=== PATIENT | female | born 1955 | race Caucasian/White ===

== ENCOUNTER 2022-01-05 09:23 | Inpatient (IN) | payer OTHER, MEDICARE ==
[2022-01-05] MEDS ORDERED: FLU VACC QS2022-23(65YR UP)/PF 240 MCG/0.7 ML SYRINGE IM ONE (11:45)
[2022-01-05] MEDS ORDERED: DOBUTamine 250 MG/20 ML VIAL ONE (12:23)
[2022-01-05] MEDS ORDERED: Nitroglycerin 0.4 MG TAB (25 Tab Bottle) SL PRN (13:30)
[2022-01-05] MEDS ORDERED: Albuterol Sulfate 2.5 mg/0.5 ml Neb NEB PRN (13:43)
[2022-01-05] MEDS: Morphine 4 MG/ML VIAL SLOW IVP PRN (14:11)
[2022-01-05] MEDS ORDERED: Magnesium 2 GM/50 ML(in water) 2 GM in Premix Bag 1 BAG IVPB SCH (14:15)
[2022-01-05] MEDS ORDERED: Iopamidol 370 76% 100 ML VIAL ONE (14:19)
[2022-01-05] MEDS: Sodium Chloride 0.9% 1,000 ML IV SCH (15:04)
[2022-01-05] MEDS ORDERED: HYDROcodone/Acetaminophen 7.5/325 mg Tablet PO SCH ×2 (15:45→16:00)
[2022-01-05] MEDS ORDERED: [UNRECOGNIZED DRUG - OTHER] MC SCH (17:00)
[2022-01-05 17:19] LABS: RBC Count-Automated (BF) 1841 /cu.mm; WBC/Nucleated-Auto (BF) 2036 /cu.mm
[2022-01-05] MEDS: Methocarbamol 500 MG TAB PO SCH ×2 (17:19→20:17)
[2022-01-05] MEDS: Gabapentin 400 MG CAP PO SCH ×2 (17:20→20:17)
[2022-01-05 18:02] LABS: Pleural Fluid, Protein 3.1 g/dL
[2022-01-05 18:20] LABS: BF Color Yellow; Body Fluid Source Pleural Fluid; Clarity Hazy (Clear); Tube # EDTA
[2022-01-05 18:25] LABS: BF Segmented Neutrophils 22 %; Cell Count Non Hematic 53 %; Lymphocytes 25 %
[2022-01-05] MEDS: Mometasone/Formoterol 200/5 60 PUFF INH SCH (18:56)
[2022-01-05] MEDS: Trospium 20 MG TAB PO SCH (20:18)
[2022-01-05] MEDS: Rosuvastatin 20 MG TAB PO SCH (20:18)
[2022-01-05] MEDS: guaiFENesin ER 600 MG TAB PO SCH (20:18)
[2022-01-05] MEDS: Latanoprost 0.005% Ophth Soln 2.5 ml Bottle EA EYE SCH (20:18)
[2022-01-05] MEDS: Zolpidem Tartrate 5 MG TAB PO SCH (20:18)
[2022-01-05] MEDS ORDERED: Electrolyte Replacement Protocol 1 EACH FS SCH (21:30)
[2022-01-05 22:00] LABS: Anion Gap 10 mmol/L (10-20); BUN (Urea Nitrogen) 10 mg/dL (9.8-20.1); Calc. Creatinine Clearance 75 mL/min (70-130); Calcium 7.8 mg/dL (7.8-10.44); Carbon Dioxide 26 mmol/L (23-31); Chloride 104 mmol/L (98-107); Estimated GFR 99; Glucose 142 mg/dL (80-115); Magnesium 1.9 mg/dL (1.6-2.6); Potassium 3.4 mmol/L (3.5-5.1); Sodium 137 mmol/L (136-145)
[2022-01-06] MEDS ORDERED: Magnesium 2 GM/50 ML(in water) 2 GM in Premix Bag 1 BAG IVPB SCH (00:15)
[2022-01-06] MEDS: Potassium Chloride 20 MEQ in Premix Bag 1 BAG IVPB SCH ×2 (01:41→02:40)
[2022-01-06] MEDS: Morphine 4 MG/ML VIAL SLOW IVP PRN ×3 (02:01→20:34)
[2022-01-06] MEDS ORDERED: Potassium Chloride 20 MEQ TAB PO SCH (02:30)
[2022-01-06] MEDS: Sodium Chloride 0.9% 1,000 ML IV SCH ×2 (04:34→16:35)
[2022-01-06] MEDS ORDERED: Communication Order-Pharmacy FS SCH (07:15)
[2022-01-06] MEDS: Mometasone/Formoterol 200/5 60 PUFF INH SCH ×2 (07:53→19:02)
[2022-01-06 08:26] LABS: #Eosinphils 0.1 thou/uL (0.0-0.7); #Lymphocytes 1.8 thou/uL (1.20-3.40); #Monocytes 0.9 thou/uL (0.11-0.59); #Neutrophils 6.5 thou/uL (1.40-6.50); %Basophils 0.2 % (0.0-1.0); %Eosinophils 1.1 % (0.0-10.0); %Lymphocytes 19.2 % (21.0-51.0); %Monocytes 9.2 % (0.0-10.0); %Neutrophils 70.3 % (42.0-75.0); Hemoglobin 13.7 g/dL (12.0-16.0); Mean Corpuscular HGB CONC 34.6 g/dL (32.0-36.0); Mean Corpuscular Hemoglobin 36.4 pg (27.0-31.0); Mean Platelet Volume 7.3 fL (7.4-10.4); Platelet Count 284 10x3/uL (130-400); RBC Distribution Width 12.3 % (11.5-14.5); Red Blood Cell (RBC) Count 3.75 mill/uL (4.20-5.40); White Blood Cell (WBC) Count 9.2 10x3/uL (4.8-10.8)
[2022-01-06 08:35] LABS: ALT (SGPT) 24 U/L (8-55); AST (SGOT) 45 U/L (5-34); Alkaline Phosphatase 242 U/L (40-110); Anion Gap 11 mmol/L (10-20); BUN (Urea Nitrogen) 6 mg/dL (9.8-20.1); Bilirubin, Total 0.4 mg/dL (0.2-1.2); Calc. Creatinine Clearance 80 mL/min (70-130); Calcium 7.9 mg/dL (7.8-10.44); Carbon Dioxide 23 mmol/L (23-31); Chloride 106 mmol/L (98-107); Estimated GFR 100; Globulin 2.6 g/dL (2.4-3.5); Glucose 119 mg/dL (80-115); Potassium 3.7 mmol/L (3.5-5.1); Protein, Total 5.6 g/dL (5.8-8.1); Sodium 136 mmol/L (136-145)
[2022-01-06] MEDS ORDERED: Enoxaparin Sodium 40 MG/0.4 ML SYRINGE SC SCH (09:00)
[2022-01-06] MEDS: Trospium 20 MG TAB PO SCH ×2 (09:52→20:33)
[2022-01-06] MEDS: clonazePAM 1 MG TAB PO SCH (09:52)
[2022-01-06] MEDS: Loratadine 10 MG TAB PO SCH (09:52)
[2022-01-06] MEDS: Gabapentin 400 MG CAP PO SCH ×4 (09:52→20:33)
[2022-01-06] MEDS: Lisinopril 20 MG TAB PO SCH (09:53)
[2022-01-06] MEDS: guaiFENesin ER 600 MG TAB PO SCH ×2 (09:53→20:33)
[2022-01-06] MEDS: DULoxetine 60 MG CAP PO SCH (09:53)
[2022-01-06] MEDS: Hydroxychloroquine Sulfate 200 MG TAB PO SCH (09:53)
[2022-01-06] MEDS: Estradiol 1 MG TAB PO SCH (09:53)
[2022-01-06] MEDS: Methocarbamol 500 MG TAB PO SCH ×4 (09:54→20:33)
[2022-01-06] MEDS ORDERED: HYDROmorphone 0.5 MG/0.5 ML SYRINGE SLOW IVP SCH (12:00)
[2022-01-06] MEDS: Mometasone Furoate 30 PUFF 220 MCG INH SCH (19:02)
[2022-01-06] MEDS: Latanoprost 0.005% Ophth Soln 2.5 ml Bottle EA EYE SCH (20:31)
[2022-01-06] MEDS: Zolpidem Tartrate 5 MG TAB PO SCH (20:33)
[2022-01-06] MEDS: Rosuvastatin 20 MG TAB PO SCH (20:33)
[2022-01-07] MEDS: Morphine 4 MG/ML VIAL SLOW IVP PRN ×2 (00:18→06:15)
[2022-01-07] MEDS: Acetaminophen 325 MG TAB PO PRN (03:34)
[2022-01-07 05:20] LABS: #Eosinphils 0.1 thou/uL (0.0-0.7); #Lymphocytes 1.3 thou/uL (1.20-3.40); #Monocytes 0.8 thou/uL (0.11-0.59); #Neutrophils 7.2 thou/uL (1.40-6.50); %Basophils 0.4 % (0.0-1.0); %Lymphocytes 13.7 % (21.0-51.0); %Monocytes 8.6 % (0.0-10.0); %Neutrophils 76.3 % (42.0-75.0); Hemoglobin 12.6 g/dL (12.0-16.0); Mean Corpuscular HGB CONC 33.7 g/dL (32.0-36.0); Mean Corpuscular Hemoglobin 35.7 pg (27.0-31.0); Mean Platelet Volume 7.7 fL (7.4-10.4); Platelet Count 236 10x3/uL (130-400); RBC Distribution Width 12.4 % (11.5-14.5); Red Blood Cell (RBC) Count 3.52 mill/uL (4.20-5.40); White Blood Cell (WBC) Count 9.4 10x3/uL (4.8-10.8)
[2022-01-07 05:35] LABS: ALT (SGPT) 34 U/L (8-55); AST (SGOT) 71 U/L (5-34); Albumin 2.9 g/dL (3.4-4.8); Alkaline Phosphatase 248 U/L (40-110); Anion Gap 7 mmol/L (10-20); BUN (Urea Nitrogen) 4 mg/dL (9.8-20.1); Bilirubin, Total 0.4 mg/dL (0.2-1.2); Calc. Creatinine Clearance 75 mL/min (70-130); Calcium 7.8 mg/dL (7.8-10.44); Carbon Dioxide 27 mmol/L (23-31); Chloride 106 mmol/L (98-107); Estimated GFR 99; Globulin 2.3 g/dL (2.4-3.5); Glucose 126 mg/dL (80-115); Potassium 3.8 mmol/L (3.5-5.1); Protein, Total 5.2 g/dL (5.8-8.1); Sodium 136 mmol/L (136-145)
[2022-01-07] MEDS: Sodium Chloride 0.9% 1,000 ML IV SCH ×2 (05:58→20:44)
[2022-01-07] MEDS ORDERED: Heparin 10,000 UNITS/ 10 ML VIAL ONE (06:45)
[2022-01-07] MEDS ORDERED: Lidocaine 1% (PF) 30 ML VIAL ONE (06:46)
[2022-01-07] MEDS ORDERED: Midazolam HCl 2 mg/2 ml Vial ONE (07:18)
[2022-01-07] MEDS ORDERED: FENTANYL 50 MCG/ML 1 ML VIAL ONE (07:18)
[2022-01-07] MEDS: Mometasone/Formoterol 200/5 60 PUFF INH SCH ×2 (07:47→18:49)
[2022-01-07] MEDS ORDERED: Morphine 4 MG/ML VIAL ONE ×2 (07:49→08:16)
[2022-01-07] MEDS ORDERED: Nitroglycerin 0.4 MG TAB (25 Tab Bottle) SL PRN (08:57)
[2022-01-07] MEDS ORDERED: Sodium Chloride 0.9% 200 ML IV PRN (08:57)
[2022-01-07] MEDS: guaiFENesin ER 600 MG TAB PO SCH ×2 (10:06→20:37)
[2022-01-07] MEDS: Hydroxychloroquine Sulfate 200 MG TAB PO SCH (10:06)
[2022-01-07] MEDS: Folic Acid 1 MG TAB PO SCH (10:06)
[2022-01-07] MEDS: clonazePAM 1 MG TAB PO SCH (10:06)
[2022-01-07] MEDS: Gabapentin 400 MG CAP PO SCH ×4 (10:06→20:37)
[2022-01-07] MEDS: Trospium 20 MG TAB PO SCH ×2 (10:07→20:37)
[2022-01-07] MEDS: Methocarbamol 500 MG TAB PO SCH ×4 (10:07→20:42)
[2022-01-07] MEDS: Thiamine 100 MG TAB PO SCH (10:08)
[2022-01-07] MEDS: DULoxetine 60 MG CAP PO SCH (10:08)
[2022-01-07] MEDS: Multivit, Therapeutic 1 TAB PO SCH (10:08)
[2022-01-07] MEDS: Lisinopril 20 MG TAB PO SCH (10:08)
[2022-01-07] MEDS: Estradiol 1 MG TAB PO SCH (10:09)
[2022-01-07] MEDS: Loratadine 10 MG TAB PO SCH (10:09)
[2022-01-07] MEDS ORDERED: HYDROmorphone 0.5 MG/0.5 ML SYRINGE SLOW IVP SCH (10:30)
[2022-01-07] MEDS ORDERED: Iopamidol 370 76% 100 ML VIAL ONE (11:00)
[2022-01-07] MEDS: Mometasone Furoate 30 PUFF 220 MCG INH SCH (18:48)
[2022-01-07] MEDS: Acetaminophen/Codeine 30-300mg Tablet PO PRN (19:11)
[2022-01-07] MEDS: Rosuvastatin 20 MG TAB PO SCH (20:36)
[2022-01-07] MEDS: Latanoprost 0.005% Ophth Soln 2.5 ml Bottle EA EYE SCH (20:37)
[2022-01-07] MEDS: Zolpidem Tartrate 5 MG TAB PO SCH (20:45)
[2022-01-08] MEDS: Acetaminophen/Codeine 30-300mg Tablet PO PRN ×2 (03:17→23:34)
[2022-01-08 04:37] LABS: #Eosinphils 0.1 thou/uL (0.0-0.7); #Lymphocytes 1.4 thou/uL (1.20-3.40); #Monocytes 0.8 thou/uL (0.11-0.59); #Neutrophils 8.7 thou/uL (1.40-6.50); %Basophils 0.4 % (0.0-1.0); %Eosinophils 0.9 % (0.0-10.0); %Lymphocytes 12.8 % (21.0-51.0); %Monocytes 7.3 % (0.0-10.0); %Neutrophils 78.6 % (42.0-75.0); Hemoglobin 12.7 g/dL (12.0-16.0); Mean Corpuscular HGB CONC 32.5 g/dL (32.0-36.0); Mean Corpuscular Hemoglobin 34.1 pg (27.0-31.0); Mean Platelet Volume 8.1 fL (7.4-10.4); Platelet Count 269 10x3/uL (130-400); RBC Distribution Width 12.6 % (11.5-14.5); Red Blood Cell (RBC) Count 3.72 mill/uL (4.20-5.40); White Blood Cell (WBC) Count 11.1 10x3/uL (4.8-10.8)
[2022-01-08 05:00] LABS: ALT (SGPT) 35 U/L (8-55); AST (SGOT) 71 U/L (5-34); Albumin 2.8 g/dL (3.4-4.8); Alkaline Phosphatase 293 U/L (40-110); Anion Gap 10 mmol/L (10-20); BUN (Urea Nitrogen) Less than 4 mg/dL (9.8-20.1); Bilirubin, Total 0.5 mg/dL (0.2-1.2); Calc. Creatinine Clearance 85 mL/min (70-130); Calcium 8.2 mg/dL (7.8-10.44); Carbon Dioxide 28 mmol/L (23-31); Chloride 102 mmol/L (98-107); Estimated GFR 102; Globulin 2.6 g/dL (2.4-3.5); Glucose 131 mg/dL (80-115); Magnesium 1.6 mg/dL (1.6-2.6); Potassium 3.7 mmol/L (3.5-5.1); Protein, Total 5.4 g/dL (5.8-8.1); Sodium 136 mmol/L (136-145)
[2022-01-08] MEDS: Mometasone/Formoterol 200/5 60 PUFF INH SCH ×2 (07:25→18:52)
[2022-01-08] MEDS ORDERED: Magnesium 2 GM/50 ML(in water) 2 GM in Premix Bag 1 BAG IVPB SCH (08:00)
[2022-01-08] MEDS: Methocarbamol 500 MG TAB PO SCH ×4 (09:20→20:04)
[2022-01-08] MEDS: Loratadine 10 MG TAB PO SCH (09:21)
[2022-01-08] MEDS: clonazePAM 1 MG TAB PO SCH (09:21)
[2022-01-08] MEDS: Estradiol 1 MG TAB PO SCH (09:21)
[2022-01-08] MEDS: Thiamine 100 MG TAB PO SCH (09:21)
[2022-01-08] MEDS: DULoxetine 60 MG CAP PO SCH (09:21)
[2022-01-08] MEDS: Folic Acid 1 MG TAB PO SCH (09:21)
[2022-01-08] MEDS: Multivit, Therapeutic 1 TAB PO SCH (09:22)
[2022-01-08] MEDS: Morphine 4 MG/ML VIAL SLOW IVP PRN ×2 (09:22→17:05)
[2022-01-08] MEDS: Gabapentin 400 MG CAP PO SCH ×4 (09:22→20:07)
[2022-01-08] MEDS: Trospium 20 MG TAB PO SCH ×2 (09:22→20:08)
[2022-01-08] MEDS: Hydroxychloroquine Sulfate 200 MG TAB PO SCH (09:22)
[2022-01-08] MEDS: guaiFENesin ER 600 MG TAB PO SCH ×2 (09:22→20:04)
[2022-01-08] MEDS: Sodium Chloride 0.9% 1,000 ML IV SCH ×2 (09:35→17:02)
[2022-01-08] MEDS ORDERED: Iopamidol-370 76% 500 ML 1 ML ONE (10:42)
[2022-01-08] MEDS: Acetaminophen 325 MG TAB PO PRN (10:45)
[2022-01-08] MEDS ORDERED: Magnevist 469MG/ML 20 ML VIAL ONE (11:00)
[2022-01-08] MEDS ORDERED: HYDROmorphone 2 MG TAB PO SCH (12:30)
[2022-01-08] MEDS ORDERED: HYDROmorphone 2 MG TAB PO PRN (15:00)
[2022-01-08] MEDS ORDERED: Morphine ER 15 MG TAB PO SCH (15:45)
[2022-01-08] MEDS: Mometasone Furoate 30 PUFF 220 MCG INH SCH (18:53)
[2022-01-08] MEDS: Zolpidem Tartrate 5 MG TAB PO SCH (20:04)
[2022-01-08] MEDS: Morphine ER 15 MG TAB PO SCH (20:04)
[2022-01-08] MEDS: Rosuvastatin 20 MG TAB PO SCH (20:08)
[2022-01-08] MEDS: Latanoprost 0.005% Ophth Soln 2.5 ml Bottle EA EYE SCH (20:09)
[2022-01-09] MEDS: Acetaminophen/Codeine 30-300mg Tablet PO PRN ×2 (03:27→11:58)
[2022-01-09 04:01] LABS: #Eosinphils 0.1 thou/uL (0.0-0.7); #Lymphocytes 1.6 thou/uL (1.20-3.40); #Monocytes 1.3 thou/uL (0.11-0.59); #Neutrophils 10.7 thou/uL (1.40-6.50); %Basophils 0.2 % (0.0-1.0); %Eosinophils 0.6 % (0.0-10.0); %Lymphocytes 11.5 % (21.0-51.0); %Monocytes 9.7 % (0.0-10.0); %Neutrophils 77.9 % (42.0-75.0); Hemoglobin 12.3 g/dL (12.0-16.0); Mean Corpuscular HGB CONC 33.8 g/dL (32.0-36.0); Mean Corpuscular Hemoglobin 35.4 pg (27.0-31.0); Platelet Count 246 10x3/uL (130-400); RBC Distribution Width 12.5 % (11.5-14.5); Red Blood Cell (RBC) Count 3.48 mill/uL (4.20-5.40); White Blood Cell (WBC) Count 13.8 10x3/uL (4.8-10.8)
[2022-01-09 04:38] LABS: Anion Gap 10 mmol/L (10-20); BUN (Urea Nitrogen) 4 mg/dL (9.8-20.1); Calc. Creatinine Clearance 88 mL/min (70-130); Carbon Dioxide 28 mmol/L (23-31); Chloride 98 mmol/L (98-107); Potassium 3.3 mmol/L (3.5-5.1); Sodium 133 mmol/L (136-145)
[2022-01-09 04:39] LABS: ALT (SGPT) 35 U/L (8-55); AST (SGOT) 72 U/L (5-34); Albumin 2.8 g/dL (3.4-4.8); Alkaline Phosphatase 284 U/L (40-110); Bilirubin, Total 1.2 mg/dL (0.2-1.2); Calcium 7.9 mg/dL (7.8-10.44); Estimated GFR 103; Globulin 2.7 g/dL (2.4-3.5); Glucose 181 mg/dL (80-115); Protein, Total 5.5 g/dL (5.8-8.1)
[2022-01-09] MEDS: Sodium Chloride 0.9% 1,000 ML IV SCH (07:26)
[2022-01-09] MEDS: Mometasone/Formoterol 200/5 60 PUFF INH SCH ×2 (07:43→18:56)
[2022-01-09] MEDS ORDERED: Potassium Chloride 20 MEQ TAB PO SCH ×2 (08:00→16:00)
[2022-01-09] MEDS: Morphine ER 15 MG TAB PO SCH ×2 (08:15→21:17)
[2022-01-09] MEDS: Thiamine 100 MG TAB PO SCH (08:15)
[2022-01-09] MEDS: Trospium 20 MG TAB PO SCH ×2 (08:16→21:16)
[2022-01-09] MEDS: Multivit, Therapeutic 1 TAB PO SCH (08:16)
[2022-01-09] MEDS: Gabapentin 400 MG CAP PO SCH ×4 (08:16→21:16)
[2022-01-09] MEDS: Folic Acid 1 MG TAB PO SCH (08:17)
[2022-01-09] MEDS: clonazePAM 1 MG TAB PO SCH (08:17)
[2022-01-09] MEDS: Methocarbamol 500 MG TAB PO SCH ×4 (08:17→21:16)
[2022-01-09] MEDS: guaiFENesin ER 600 MG TAB PO SCH ×2 (08:18→21:16)
[2022-01-09] MEDS: Loratadine 10 MG TAB PO SCH (08:18)
[2022-01-09] MEDS: Estradiol 1 MG TAB PO SCH (08:18)
[2022-01-09] MEDS: DULoxetine 60 MG CAP PO SCH (08:18)
[2022-01-09] MEDS: Hydroxychloroquine Sulfate 200 MG TAB PO SCH (08:25)
[2022-01-09] MEDS ORDERED: Furosemide 40 MG/4 ML VIAL SLOW IVP SCH (13:45)
[2022-01-09] MEDS: Mometasone Furoate 30 PUFF 220 MCG INH SCH (18:56)
[2022-01-09] MEDS: Senokot S 8.6-50 MG TAB PO SCH (21:16)
[2022-01-09] MEDS: Latanoprost 0.005% Ophth Soln 2.5 ml Bottle EA EYE SCH (21:16)
[2022-01-09] MEDS: Rosuvastatin 20 MG TAB PO SCH (21:16)
[2022-01-09] MEDS: Zolpidem Tartrate 5 MG TAB PO SCH (21:21)
[2022-01-10] MEDS: Acetaminophen/Codeine 30-300mg Tablet PO PRN (01:03)
[2022-01-10 05:02] LABS: #Eosinphils 0.1 thou/uL (0.0-0.7); #Lymphocytes 1.4 thou/uL (1.20-3.40); #Monocytes 1.4 thou/uL (0.11-0.59); %Basophils 0.3 % (0.0-1.0); %Eosinophils 0.7 % (0.0-10.0); %Lymphocytes 11.4 % (21.0-51.0); %Monocytes 11.4 % (0.0-10.0); %Neutrophils 76.1 % (42.0-75.0); Hemoglobin 12.5 g/dL (12.0-16.0); Mean Corpuscular HGB CONC 32.1 g/dL (32.0-36.0); Mean Corpuscular Hemoglobin 33.9 pg (27.0-31.0); Mean Platelet Volume 8.1 fL (7.4-10.4); Platelet Count 255 10x3/uL (130-400); RBC Distribution Width 12.7 % (11.5-14.5); Red Blood Cell (RBC) Count 3.68 mill/uL (4.20-5.40); White Blood Cell (WBC) Count 11.8 10x3/uL (4.8-10.8)
[2022-01-10 05:23] LABS: Anion Gap 10 mmol/L (10-20); BUN (Urea Nitrogen) 6 mg/dL (9.8-20.1); Calc. Creatinine Clearance 90 mL/min (70-130); Calcium 8.2 mg/dL (7.8-10.44); Carbon Dioxide 29 mmol/L (23-31); Chloride 99 mmol/L (98-107); Estimated GFR 103; Glucose 128 mg/dL (80-115); Potassium 3.7 mmol/L (3.5-5.1); Sodium 134 mmol/L (136-145)
[2022-01-10] MEDS: Morphine 4 MG/ML VIAL SLOW IVP PRN ×2 (05:48→16:20)
[2022-01-10] MEDS: Mometasone/Formoterol 200/5 60 PUFF INH SCH ×2 (07:00→18:52)
[2022-01-10] MEDS: Gabapentin 400 MG CAP PO SCH ×4 (08:44→22:00)
[2022-01-10] MEDS: Loratadine 10 MG TAB PO SCH (08:45)
[2022-01-10] MEDS: Folic Acid 1 MG TAB PO SCH (08:45)
[2022-01-10] MEDS: Senokot S 8.6-50 MG TAB PO SCH ×2 (08:45→22:00)
[2022-01-10] MEDS: clonazePAM 1 MG TAB PO SCH (08:45)
[2022-01-10] MEDS: Estradiol 1 MG TAB PO SCH (08:45)
[2022-01-10] MEDS: Multivit, Therapeutic 1 TAB PO SCH (08:45)
[2022-01-10] MEDS: DULoxetine 60 MG CAP PO SCH (08:45)
[2022-01-10] MEDS: Trospium 20 MG TAB PO SCH ×2 (08:46→22:00)
[2022-01-10] MEDS: Methocarbamol 500 MG TAB PO SCH ×4 (08:46→22:00)
[2022-01-10] MEDS: Thiamine 100 MG TAB PO SCH (08:46)
[2022-01-10] MEDS: guaiFENesin ER 600 MG TAB PO SCH (08:46)
[2022-01-10] MEDS: Hydroxychloroquine Sulfate 200 MG TAB PO SCH (08:46)
[2022-01-10] MEDS: Polyethylene Glycol 3350 17 GM Packet PO SCH (08:47)
[2022-01-10] MEDS: Morphine ER 15 MG TAB PO SCH ×2 (08:47→22:00)
[2022-01-10] MEDS ORDERED: Furosemide 40 MG/4 ML VIAL SLOW IVP SCH (13:30)
[2022-01-10] MEDS: Benzonatate 100 MG CAP PO SCH ×2 (16:15→22:00)
[2022-01-10 21:06] LABS: Actual Bicarbonate (HCO3a) 27.8 mEq/L (22-28); Base Excess (BEa) 3.1 mEq/L (-2.0 to +3.0); CO2 Tension 42.7 mmHg (35.0-45.0); Calcium, Ionized (arterial) 1.14 mmol/L (1.12-1.30); Carboxyhemoglobin (COHb) 0.2 gm% (0.0-3.0); Hemoglobin (Hb) 13.6 g/dL (12.0-16.0); O2 Tension (PaO2), arterial 71.8 mmHg (> 80.0); Potassium - ABG Lab 3.87 mmol/L (3.70-5.30); pH, Arterial 7.43 (7.35-7.45)
[2022-01-10 21:08] LABS: ALV-art Gradient 445.225 mmHg (0-20); Puncture Site RBA
[2022-01-10] MEDS: Rosuvastatin 20 MG TAB PO SCH (22:00)
[2022-01-10] MEDS: Latanoprost 0.005% Ophth Soln 2.5 ml Bottle EA EYE SCH (22:00)
[2022-01-10] MEDS: Zolpidem Tartrate 5 MG TAB PO SCH (22:00)
[2022-01-11 05:45] LABS: #Eosinphils 0.1 thou/uL (0.0-0.7); #Lymphocytes 1.3 thou/uL (1.20-3.40); #Monocytes 1.6 thou/uL (0.11-0.59); #Neutrophils 8.3 thou/uL (1.40-6.50); %Basophils 0.2 % (0.0-1.0); %Eosinophils 0.9 % (0.0-10.0); %Lymphocytes 11.3 % (21.0-51.0); %Monocytes 14.4 % (0.0-10.0); %Neutrophils 73.3 % (42.0-75.0); Hemoglobin 11.7 g/dL (12.0-16.0); Mean Corpuscular HGB CONC 32.9 g/dL (32.0-36.0); Mean Corpuscular Hemoglobin 34.8 pg (27.0-31.0); Mean Platelet Volume 8.1 fL (7.4-10.4); Platelet Count 248 10x3/uL (130-400); RBC Distribution Width 12.6 % (11.5-14.5); Red Blood Cell (RBC) Count 3.36 mill/uL (4.20-5.40); White Blood Cell (WBC) Count 11.3 10x3/uL (4.8-10.8)
[2022-01-11] MEDS ORDERED: Furosemide 20 MG/2 ML VIAL SLOW IVP SCH (06:00)
[2022-01-11 06:06] LABS: Anion Gap 9 mmol/L (10-20); BUN (Urea Nitrogen) 7 mg/dL (9.8-20.1); Calc. Creatinine Clearance 83 mL/min (70-130); Calcium 8.4 mg/dL (7.8-10.44); Carbon Dioxide 30 mmol/L (23-31); Chloride 100 mmol/L (98-107); Estimated GFR 101; Glucose 103 mg/dL (80-115); Magnesium 1.7 mg/dL (1.6-2.6); Potassium 3.8 mmol/L (3.5-5.1); Sodium 135 mmol/L (136-145)
[2022-01-11] MEDS: Mometasone/Formoterol 200/5 60 PUFF INH SCH ×2 (06:38→18:46)
[2022-01-11] MEDS: Benzonatate 100 MG CAP PO SCH ×3 (08:37→20:07)
[2022-01-11] MEDS: Estradiol 1 MG TAB PO SCH (08:38)
[2022-01-11] MEDS: Folic Acid 1 MG TAB PO SCH (08:38)
[2022-01-11] MEDS: DULoxetine 60 MG CAP PO SCH (08:38)
[2022-01-11] MEDS: Loratadine 10 MG TAB PO SCH (08:39)
[2022-01-11] MEDS: Methocarbamol 500 MG TAB PO SCH ×4 (08:39→20:08)
[2022-01-11] MEDS: Hydroxychloroquine Sulfate 200 MG TAB PO SCH (08:39)
[2022-01-11] MEDS: clonazePAM 1 MG TAB PO SCH (08:39)
[2022-01-11] MEDS: Gabapentin 400 MG CAP PO SCH ×4 (08:39→20:07)
[2022-01-11] MEDS: Morphine ER 15 MG TAB PO SCH ×2 (08:39→20:08)
[2022-01-11] MEDS: Multivit, Therapeutic 1 TAB PO SCH (08:39)
[2022-01-11] MEDS: Trospium 20 MG TAB PO SCH ×2 (08:40→20:08)
[2022-01-11] MEDS: Polyethylene Glycol 3350 17 GM Packet PO SCH (08:40)
[2022-01-11] MEDS: Senokot S 8.6-50 MG TAB PO SCH ×2 (08:40→20:08)
[2022-01-11] MEDS: Thiamine 100 MG TAB PO SCH (08:40)
[2022-01-11] MEDS ORDERED: Furosemide 40 MG/4 ML VIAL SLOW IVP SCH (09:00)
[2022-01-11] MEDS: Ampicillin/Sulbactam 1.5 GM in Sodium Chloride 0.9% 100 ML IVPB SCH ×3 (10:01→20:04)
[2022-01-11] MEDS: methylPREDNISolone Sod Succ 40 MG VIAL IVP SCH ×3 (13:24→23:52)
[2022-01-11] MEDS: Morphine 4 MG/ML VIAL SLOW IVP PRN (19:56)
[2022-01-11] MEDS: Zolpidem Tartrate 5 MG TAB PO SCH (20:08)
[2022-01-11] MEDS: Rosuvastatin 20 MG TAB PO SCH (20:08)
[2022-01-11] MEDS: Latanoprost 0.005% Ophth Soln 2.5 ml Bottle EA EYE SCH (21:19)
[2022-01-12] MEDS: Morphine 4 MG/ML VIAL SLOW IVP PRN ×3 (01:29→16:02)
[2022-01-12] MEDS: Ampicillin/Sulbactam 1.5 GM in Sodium Chloride 0.9% 100 ML IVPB SCH (03:27)
[2022-01-12 05:27] LABS: #Lymphocytes 0.7 thou/uL (1.20-3.40); #Monocytes 0.6 thou/uL (0.11-0.59); #Neutrophils 7.1 thou/uL (1.40-6.50); %Basophils 0.1 % (0.0-1.0); %Eosinophils 0.3 % (0.0-10.0); %Lymphocytes 8.8 % (21.0-51.0); %Monocytes 7.6 % (0.0-10.0); %Neutrophils 83.2 % (42.0-75.0); Hemoglobin 11.8 g/dL (12.0-16.0); Mean Corpuscular HGB CONC 33.2 g/dL (32.0-36.0); Mean Corpuscular Hemoglobin 34.9 pg (27.0-31.0); Mean Platelet Volume 7.8 fL (7.4-10.4); Platelet Count 258 10x3/uL (130-400); RBC Distribution Width 12.5 % (11.5-14.5); White Blood Cell (WBC) Count 8.5 10x3/uL (4.8-10.8)
[2022-01-12] MEDS: methylPREDNISolone Sod Succ 40 MG VIAL IVP SCH ×3 (06:04→19:27)
[2022-01-12 06:25] LABS: ALT (SGPT) 33 U/L (8-55); AST (SGOT) 60 U/L (5-34); Albumin 2.8 g/dL (3.4-4.8); Alkaline Phosphatase 294 U/L (40-110); Anion Gap 15 mmol/L (10-20); BUN (Urea Nitrogen) 15 mg/dL (9.8-20.1); Bilirubin, Total 0.8 mg/dL (0.2-1.2); Calc. Creatinine Clearance 71 mL/min (70-130); Calcium 8.8 mg/dL (7.8-10.44); Carbon Dioxide 29 mmol/L (23-31); Chloride 96 mmol/L (98-107); Estimated GFR 98; Globulin 3.2 g/dL (2.4-3.5); Glucose 136 mg/dL (80-115); Magnesium 1.9 mg/dL (1.6-2.6); Potassium 3.3 mmol/L (3.5-5.1); Sodium 137 mmol/L (136-145)
[2022-01-12] MEDS: Mometasone/Formoterol 200/5 60 PUFF INH SCH ×2 (07:15→19:14)
[2022-01-12] MEDS: DULoxetine 60 MG CAP PO SCH ×2 (07:47→09:55)
[2022-01-12] MEDS: Estradiol 1 MG TAB PO SCH ×2 (07:47→09:58)
[2022-01-12] MEDS: clonazePAM 1 MG TAB PO SCH ×2 (07:47→10:00)
[2022-01-12] MEDS: Benzonatate 100 MG CAP PO SCH ×4 (07:47→21:57)
[2022-01-12] MEDS: Folic Acid 1 MG TAB PO SCH ×2 (07:48→09:57)
[2022-01-12] MEDS: Hydroxychloroquine Sulfate 200 MG TAB PO SCH ×2 (07:48→09:58)
[2022-01-12] MEDS: Loratadine 10 MG TAB PO SCH ×2 (07:48→09:55)
[2022-01-12] MEDS: Gabapentin 400 MG CAP PO SCH ×5 (07:48→21:57)
[2022-01-12] MEDS: Polyethylene Glycol 3350 17 GM Packet PO SCH ×2 (07:49→09:55)
[2022-01-12] MEDS: Methocarbamol 500 MG TAB PO SCH ×5 (07:49→21:57)
[2022-01-12] MEDS: Multivit, Therapeutic 1 TAB PO SCH ×2 (07:49→09:55)
[2022-01-12] MEDS: Morphine ER 15 MG TAB PO SCH ×3 (07:49→21:57)
[2022-01-12] MEDS: Senokot S 8.6-50 MG TAB PO SCH ×3 (07:50→22:00)
[2022-01-12] MEDS: Thiamine 100 MG TAB PO SCH ×2 (07:50→09:55)
[2022-01-12] MEDS: Trospium 20 MG TAB PO SCH ×3 (07:50→21:58)
[2022-01-12] MEDS: Enoxaparin Sodium 40 MG/0.4 ML SYRINGE SC SCH (09:54)
[2022-01-12] MEDS: Ampicillin/Sulbactam 3 GM in Sodium Chloride 0.9% 100 ML IVPB SCH ×3 (09:54→22:03)
[2022-01-12] MEDS ORDERED: Dexamethasone 10 MG in Sodium Chloride 0.9% 50 ML IVPB SCH (10:30)
[2022-01-12] MEDS ORDERED: PALONOSETRON HCL 0.05 MG/ML 5 ML VIAL IVP SCH (10:30)
[2022-01-12] MEDS ORDERED: CARBOPLATIN IVPB SCH (10:45)
[2022-01-12] MEDS ORDERED: SODIUM CHLORIDE 0.9% IVPB SCH (10:45)
[2022-01-12] MEDS: Rosuvastatin 20 MG TAB PO SCH (21:58)
[2022-01-12] MEDS: Zolpidem Tartrate 5 MG TAB PO SCH (21:58)
[2022-01-12] MEDS: Latanoprost 0.005% Ophth Soln 2.5 ml Bottle EA EYE SCH (22:00)
[2022-01-13] MEDS: methylPREDNISolone Sod Succ 40 MG VIAL IVP SCH ×5 (00:38→23:49)
[2022-01-13] MEDS: Morphine 4 MG/ML VIAL SLOW IVP PRN ×2 (02:37→17:19)
[2022-01-13] MEDS: Ampicillin/Sulbactam 3 GM in Sodium Chloride 0.9% 100 ML IVPB SCH ×4 (02:38→20:55)
[2022-01-13 03:49] LABS: ALT (SGPT) 32 U/L (8-55); AST (SGOT) 55 U/L (5-34); Albumin 2.9 g/dL (3.4-4.8); Alkaline Phosphatase 311 U/L (40-110); Anion Gap 12 mmol/L (10-20); BUN (Urea Nitrogen) 17 mg/dL (9.8-20.1); Bilirubin, Total 0.6 mg/dL (0.2-1.2); Calc. Creatinine Clearance 67 mL/min (70-130); Calcium 8.8 mg/dL (7.8-10.44); Carbon Dioxide 29 mmol/L (23-31); Chloride 101 mmol/L (98-107); Estimated GFR 96; Globulin 3.2 g/dL (2.4-3.5); Glucose 156 mg/dL (80-115); Protein, Total 6.1 g/dL (5.8-8.1); Sodium 139 mmol/L (136-145)
[2022-01-13 03:54] LABS: #Lymphocytes 0.5 thou/uL (1.20-3.40); #Monocytes 0.6 thou/uL (0.11-0.59); #Neutrophils 10.2 thou/uL (1.40-6.50); %Basophils 0.4 % (0.0-1.0); %Eosinophils 0.2 % (0.0-10.0); %Lymphocytes 4.5 % (21.0-51.0); %Neutrophils 89.9 % (42.0-75.0); Hemoglobin 11.4 g/dL (12.0-16.0); Mean Corpuscular HGB CONC 33.3 g/dL (32.0-36.0); Mean Corpuscular Hemoglobin 35.3 pg (27.0-31.0); Mean Platelet Volume 7.6 fL (7.4-10.4); Platelet Count 264 10x3/uL (130-400); RBC Distribution Width 12.6 % (11.5-14.5); Red Blood Cell (RBC) Count 3.23 mill/uL (4.20-5.40); White Blood Cell (WBC) Count 11.4 10x3/uL (4.8-10.8)
[2022-01-13] MEDS: Mometasone/Formoterol 200/5 60 PUFF INH SCH ×2 (07:57→18:58)
[2022-01-13] MEDS: Potassium Chloride 20 MEQ in Premix Bag 1 BAG IVPB SCH ×2 (09:06→11:52)
[2022-01-13] MEDS: clonazePAM 1 MG TAB PO SCH (09:09)
[2022-01-13] MEDS: Morphine ER 15 MG TAB PO SCH ×2 (09:10→20:55)
[2022-01-13] MEDS: Benzonatate 100 MG CAP PO SCH ×4 (09:12→20:55)
[2022-01-13] MEDS: Methocarbamol 500 MG TAB PO SCH ×4 (09:13→21:03)
[2022-01-13] MEDS: Hydroxychloroquine Sulfate 200 MG TAB PO SCH (09:15)
[2022-01-13] MEDS: Trospium 20 MG TAB PO SCH ×2 (09:16→21:03)
[2022-01-13] MEDS: Estradiol 1 MG TAB PO SCH (09:16)
[2022-01-13] MEDS: Senokot S 8.6-50 MG TAB PO SCH ×2 (09:17→21:03)
[2022-01-13] MEDS: DULoxetine 60 MG CAP PO SCH (09:18)
[2022-01-13] MEDS: Polyethylene Glycol 3350 17 GM Packet PO SCH (09:18)
[2022-01-13] MEDS: Thiamine 100 MG TAB PO SCH (09:18)
[2022-01-13] MEDS: Multivit, Therapeutic 1 TAB PO SCH (09:18)
[2022-01-13] MEDS: Loratadine 10 MG TAB PO SCH (09:18)
[2022-01-13] MEDS: Folic Acid 1 MG TAB PO SCH (09:18)
[2022-01-13] MEDS: Gabapentin 400 MG CAP PO SCH ×4 (09:18→21:03)
[2022-01-13] MEDS: Enoxaparin Sodium 40 MG/0.4 ML SYRINGE SC SCH (09:18)
[2022-01-13] MEDS: D5W-AA 4.25% with LYTES 1,000 ML IV SCH (15:41)
[2022-01-13 15:51] VITALS: BMI 22.6
[2022-01-13] MEDS: Latanoprost 0.005% Ophth Soln 2.5 ml Bottle EA EYE SCH (20:59)
[2022-01-13] MEDS: Zolpidem Tartrate 5 MG TAB PO SCH (21:03)
[2022-01-13] MEDS: Rosuvastatin 20 MG TAB PO SCH (21:03)
[2022-01-14] MEDS: Ampicillin/Sulbactam 3 GM in Sodium Chloride 0.9% 100 ML IVPB SCH ×4 (02:48→20:39)
[2022-01-14 05:05] LABS: #Lymphocytes 0.6 thou/uL (1.20-3.40); #Monocytes 0.7 thou/uL (0.11-0.59); #Neutrophils 10.8 thou/uL (1.40-6.50); %Basophils 0.1 % (0.0-1.0); %Eosinophils 0.1 % (0.0-10.0); %Lymphocytes 4.6 % (21.0-51.0); %Monocytes 5.8 % (0.0-10.0); %Neutrophils 89.4 % (42.0-75.0); Mean Corpuscular HGB CONC 32.2 g/dL (32.0-36.0); Mean Corpuscular Hemoglobin 34.5 pg (27.0-31.0); Mean Platelet Volume 7.9 fL (7.4-10.4); Platelet Count 225 10x3/uL (130-400); RBC Distribution Width 12.4 % (11.5-14.5); White Blood Cell (WBC) Count 12.1 10x3/uL (4.8-10.8)
[2022-01-14] MEDS: methylPREDNISolone Sod Succ 40 MG VIAL IVP SCH ×3 (05:22→20:25)
[2022-01-14] MEDS: D5W-AA 4.25% with LYTES 1,000 ML IV SCH (05:22)
[2022-01-14 05:41] LABS: ALT (SGPT) 36 U/L (8-55); AST (SGOT) 65 U/L (5-34); Albumin 2.7 g/dL (3.4-4.8); Alkaline Phosphatase 301 U/L (40-110); Anion Gap 10 mmol/L (10-20); BUN (Urea Nitrogen) 20 mg/dL (9.8-20.1); Bilirubin, Total 0.3 mg/dL (0.2-1.2); Calc. Creatinine Clearance 68 mL/min (70-130); Calcium 8.4 mg/dL (7.8-10.44); Carbon Dioxide 30 mmol/L (23-31); Chloride 103 mmol/L (98-107); Estimated GFR 97; Globulin 2.7 g/dL (2.4-3.5); Glucose 191 mg/dL (80-115); Magnesium 2.2 mg/dL (1.6-2.6); Potassium 3.8 mmol/L (3.5-5.1); Protein, Total 5.4 g/dL (5.8-8.1); Sodium 139 mmol/L (136-145)
[2022-01-14] MEDS: Mometasone/Formoterol 200/5 60 PUFF INH SCH ×2 (07:47→18:46)
[2022-01-14] MEDS: Enoxaparin Sodium 40 MG/0.4 ML SYRINGE SC SCH (07:56)
[2022-01-14] MEDS: Multivit, Therapeutic 1 TAB PO SCH (07:56)
[2022-01-14] MEDS: Polyethylene Glycol 3350 17 GM Packet PO SCH (07:56)
[2022-01-14] MEDS: Trospium 20 MG TAB PO SCH ×2 (07:57→20:26)
[2022-01-14] MEDS: Senokot S 8.6-50 MG TAB PO SCH ×2 (07:57→20:28)
[2022-01-14] MEDS: Morphine ER 15 MG TAB PO SCH ×2 (07:57→20:30)
[2022-01-14] MEDS: Folic Acid 1 MG TAB PO SCH (07:57)
[2022-01-14] MEDS: Thiamine 100 MG TAB PO SCH (07:57)
[2022-01-14] MEDS: Loratadine 10 MG TAB PO SCH (07:57)
[2022-01-14] MEDS: Hydroxychloroquine Sulfate 200 MG TAB PO SCH (07:58)
[2022-01-14] MEDS: Benzonatate 100 MG CAP PO SCH ×3 (07:58→20:28)
[2022-01-14] MEDS: Gabapentin 400 MG CAP PO SCH ×4 (07:58→20:29)
[2022-01-14] MEDS: clonazePAM 1 MG TAB PO SCH (07:58)
[2022-01-14] MEDS: DULoxetine 60 MG CAP PO SCH (07:59)
[2022-01-14] MEDS: Methocarbamol 500 MG TAB PO SCH ×4 (07:59→20:27)
[2022-01-14] MEDS ORDERED: Furosemide 40 MG/4 ML VIAL SLOW IVP SCH (08:30)
[2022-01-14] MEDS: Estradiol 1 MG TAB PO SCH (08:56)
[2022-01-14] MEDS: Morphine 4 MG/ML VIAL SLOW IVP PRN (09:55)
[2022-01-14] MEDS: Rosuvastatin 20 MG TAB PO SCH (20:27)
[2022-01-14] MEDS: Zolpidem Tartrate 5 MG TAB PO SCH (20:29)
[2022-01-14] MEDS: Latanoprost 0.005% Ophth Soln 2.5 ml Bottle EA EYE SCH (20:32)
[2022-01-15] MEDS: Ampicillin/Sulbactam 3 GM in Sodium Chloride 0.9% 100 ML IVPB SCH ×4 (03:00→20:12)
[2022-01-15 06:28] LABS: #Lymphocytes 1.3 thou/uL (1.20-3.40); #Monocytes 0.2 thou/uL (0.11-0.59); #Neutrophils 8.6 thou/uL (1.40-6.50); %Basophils 0.2 % (0.0-1.0); %Eosinophils 0.1 % (0.0-10.0); %Lymphocytes 12.5 % (21.0-51.0); %Monocytes 1.6 % (0.0-10.0); %Neutrophils 85.6 % (42.0-75.0); Hemoglobin 11.6 g/dL (12.0-16.0); Mean Corpuscular HGB CONC 32.7 g/dL (32.0-36.0); Mean Corpuscular Hemoglobin 34.9 pg (27.0-31.0); Mean Platelet Volume 7.6 fL (7.4-10.4); Platelet Count 242 10x3/uL (130-400); RBC Distribution Width 12.2 % (11.5-14.5); Red Blood Cell (RBC) Count 3.33 mill/uL (4.20-5.40)
[2022-01-15 06:29] LABS: Anion Gap 10 mmol/L (10-20); BUN (Urea Nitrogen) 23 mg/dL (9.8-20.1); Calc. Creatinine Clearance 78 mL/min (70-130); Calcium 8.2 mg/dL (7.8-10.44); Carbon Dioxide 33 mmol/L (23-31); Chloride 98 mmol/L (98-107); Estimated GFR 100; Glucose 118 mg/dL (80-115); Magnesium 2.2 mg/dL (1.6-2.6); Potassium 4.9 mmol/L (3.5-5.1); Sodium 136 mmol/L (136-145)
[2022-01-15] MEDS: Mometasone/Formoterol 200/5 60 PUFF INH SCH ×2 (07:00→20:00)
[2022-01-15] MEDS: Morphine 4 MG/ML VIAL SLOW IVP PRN (08:03)
[2022-01-15] MEDS: Morphine ER 15 MG TAB PO SCH ×2 (08:11→20:11)
[2022-01-15] MEDS: clonazePAM 1 MG TAB PO SCH (08:12)
[2022-01-15] MEDS: Folic Acid 1 MG TAB PO SCH (08:16)
[2022-01-15] MEDS: Benzonatate 100 MG CAP PO SCH ×3 (08:16→20:10)
[2022-01-15] MEDS: Polyethylene Glycol 3350 17 GM Packet PO SCH (08:16)
[2022-01-15] MEDS: Gabapentin 400 MG CAP PO SCH ×4 (08:18→20:10)
[2022-01-15] MEDS: DULoxetine 60 MG CAP PO SCH (08:19)
[2022-01-15] MEDS: Loratadine 10 MG TAB PO SCH (08:19)
[2022-01-15] MEDS: Trospium 20 MG TAB PO SCH ×2 (08:20→20:11)
[2022-01-15] MEDS: Senokot S 8.6-50 MG TAB PO SCH ×2 (08:20→20:12)
[2022-01-15] MEDS: Estradiol 1 MG TAB PO SCH (08:20)
[2022-01-15] MEDS: Multivit, Therapeutic 1 TAB PO SCH (08:21)
[2022-01-15] MEDS: Thiamine 100 MG TAB PO SCH (08:21)
[2022-01-15] MEDS: Enoxaparin Sodium 40 MG/0.4 ML SYRINGE SC SCH (08:22)
[2022-01-15] MEDS: Hydroxychloroquine Sulfate 200 MG TAB PO SCH (08:22)
[2022-01-15] MEDS: Methocarbamol 500 MG TAB PO SCH ×4 (08:22→20:10)
[2022-01-15] MEDS: methylPREDNISolone Sod Succ 40 MG VIAL IVP SCH ×2 (10:29→20:12)
[2022-01-15] MEDS ORDERED: PEGFILGRASTIM-JMDB 6 MG/0.6 ML SYRINGE SQ SCH ×2 (11:00→12:00)
[2022-01-15] MEDS: Acetaminophen/Codeine 30-300mg Tablet PO PRN ×2 (11:20→17:00)
[2022-01-15] MEDS: guaiFENesin/Codeine 200 mg/20 mg 10 ml Cup PO PRN ×2 (11:21→16:59)
[2022-01-15] MEDS: Rosuvastatin 20 MG TAB PO SCH (20:10)
[2022-01-15] MEDS: Zolpidem Tartrate 5 MG TAB PO SCH (20:12)
[2022-01-15] MEDS: Latanoprost 0.005% Ophth Soln 2.5 ml Bottle EA EYE SCH (20:12)
[2022-01-16] MEDS: guaiFENesin/Codeine 200 mg/20 mg 10 ml Cup PO PRN (04:26)
[2022-01-16] MEDS: Acetaminophen/Codeine 30-300mg Tablet PO PRN (04:26)
[2022-01-16 06:15] LABS: ALT (SGPT) 32 U/L (8-55); AST (SGOT) 40 U/L (5-34); Albumin 2.6 g/dL (3.4-4.8); Alkaline Phosphatase 256 U/L (40-110); Anion Gap 9 mmol/L (10-20); BUN (Urea Nitrogen) 18 mg/dL (9.8-20.1); Bilirubin, Total 0.4 mg/dL (0.2-1.2); Calc. Creatinine Clearance 72 mL/min (70-130); Calcium 7.8 mg/dL (7.8-10.44); Carbon Dioxide 31 mmol/L (23-31); Chloride 101 mmol/L (98-107); Estimated GFR 98; Globulin 2.6 g/dL (2.4-3.5); Glucose 251 mg/dL (80-115); Magnesium 2.1 mg/dL (1.6-2.6); Potassium 4.3 mmol/L (3.5-5.1); Protein, Total 5.2 g/dL (5.8-8.1); Sodium 137 mmol/L (136-145)
[2022-01-16 07:11] LABS: Band 24 % (5-11); Lymphocytes 4 % (21-51); MDiff Complete? YES; Macrocytosis SLIGHT = 6-15 cells (100X) (0-5/hpf); Mean Corpuscular HGB CONC 32.4 g/dL (32.0-36.0); Mean Corpuscular Hemoglobin 34.9 pg (27.0-31.0); Monocytes 2 % (0-10); Neutrophil 70 % (42-75); Ovalocytes SLIGHT = 2-5 cells (100X) (0-1/hpf); Platelet Count 219 10x3/uL (130-400); Platelet Morphology Comment Appears Adequate; RBC Distribution Width 12.1 % (11.5-14.5); Red Blood Cell (RBC) Count 3.15 mill/uL (4.20-5.40)
[2022-01-16] MEDS: Enoxaparin Sodium 40 MG/0.4 ML SYRINGE SC SCH (08:47)
[2022-01-16] MEDS: methylPREDNISolone Sod Succ 40 MG VIAL IVP SCH ×2 (08:47→19:47)
[2022-01-16] MEDS: Senokot S 8.6-50 MG TAB PO SCH ×2 (08:47→19:48)
[2022-01-16] MEDS: Thiamine 100 MG TAB PO SCH (08:47)
[2022-01-16] MEDS: Polyethylene Glycol 3350 17 GM Packet PO SCH (08:47)
[2022-01-16] MEDS: clonazePAM 1 MG TAB PO SCH (08:47)
[2022-01-16] MEDS: Benzonatate 100 MG CAP PO SCH ×3 (08:48→19:48)
[2022-01-16] MEDS: Gabapentin 400 MG CAP PO SCH ×4 (08:48→19:49)
[2022-01-16] MEDS: Folic Acid 1 MG TAB PO SCH (08:48)
[2022-01-16] MEDS: Morphine ER 15 MG TAB PO SCH ×2 (08:48→19:48)
[2022-01-16] MEDS: DULoxetine 60 MG CAP PO SCH (08:48)
[2022-01-16] MEDS: Loratadine 10 MG TAB PO SCH (08:48)
[2022-01-16] MEDS: Multivit, Therapeutic 1 TAB PO SCH (08:48)
[2022-01-16] MEDS: Hydroxychloroquine Sulfate 200 MG TAB PO SCH (08:49)
[2022-01-16] MEDS: Methocarbamol 500 MG TAB PO SCH ×4 (08:49→19:49)
[2022-01-16] MEDS: Estradiol 1 MG TAB PO SCH (08:49)
[2022-01-16] MEDS: Trospium 20 MG TAB PO SCH ×2 (08:50→19:47)
[2022-01-16] MEDS: Mometasone/Formoterol 200/5 60 PUFF INH SCH ×2 (09:00→20:07)
[2022-01-16] MEDS: Latanoprost 0.005% Ophth Soln 2.5 ml Bottle EA EYE SCH (19:47)
[2022-01-16] MEDS: guaiFENesin ER 600 MG TAB PO SCH (19:49)
[2022-01-16] MEDS: Rosuvastatin 20 MG TAB PO SCH (19:49)
[2022-01-16] MEDS: Zolpidem Tartrate 5 MG TAB PO SCH (23:35)
[2022-01-17] MEDS: Acetaminophen/Codeine 30-300mg Tablet PO PRN (04:03)
[2022-01-17] MEDS: guaiFENesin/Codeine 200 mg/20 mg 10 ml Cup PO PRN ×2 (04:04→14:44)
[2022-01-17] MEDS: Mometasone/Formoterol 200/5 60 PUFF INH SCH ×2 (07:22→17:27)
[2022-01-17] MEDS: Senokot S 8.6-50 MG TAB PO SCH ×2 (08:36→19:56)
[2022-01-17] MEDS: Polyethylene Glycol 3350 17 GM Packet PO SCH (08:36)
[2022-01-17] MEDS: Benzonatate 100 MG CAP PO SCH ×3 (08:40→19:58)
[2022-01-17] MEDS: clonazePAM 1 MG TAB PO SCH (08:40)
[2022-01-17] MEDS: DULoxetine 60 MG CAP PO SCH (08:41)
[2022-01-17] MEDS: Estradiol 1 MG TAB PO SCH (08:41)
[2022-01-17] MEDS: Folic Acid 1 MG TAB PO SCH (08:41)
[2022-01-17] MEDS: Gabapentin 400 MG CAP PO SCH ×4 (08:41→19:57)
[2022-01-17] MEDS: Methocarbamol 500 MG TAB PO SCH ×4 (08:42→20:01)
[2022-01-17] MEDS: Hydroxychloroquine Sulfate 200 MG TAB PO SCH (08:42)
[2022-01-17] MEDS: guaiFENesin ER 600 MG TAB PO SCH ×2 (08:42→19:59)
[2022-01-17] MEDS: Loratadine 10 MG TAB PO SCH (08:42)
[2022-01-17] MEDS: methylPREDNISolone Sod Succ 40 MG VIAL IVP SCH ×2 (08:43→20:01)
[2022-01-17] MEDS: Morphine ER 15 MG TAB PO SCH ×2 (08:43→20:00)
[2022-01-17] MEDS: Thiamine 100 MG TAB PO SCH (08:44)
[2022-01-17] MEDS: Multivit, Therapeutic 1 TAB PO SCH (08:44)
[2022-01-17] MEDS: Trospium 20 MG TAB PO SCH ×2 (08:44→19:57)
[2022-01-17] MEDS: Enoxaparin Sodium 40 MG/0.4 ML SYRINGE SC SCH (08:45)
[2022-01-17 12:10] LABS: ALT (SGPT) 37 U/L (8-55); AST (SGOT) 35 U/L (5-34); Albumin 2.9 g/dL (3.4-4.8); Alkaline Phosphatase 254 U/L (40-110); Anion Gap 11 mmol/L (10-20); BUN (Urea Nitrogen) 12 mg/dL (9.8-20.1); Bilirubin, Total 0.5 mg/dL (0.2-1.2); Calc. Creatinine Clearance 89 mL/min (70-130); Calcium 8.4 mg/dL (7.8-10.44); Carbon Dioxide 31 mmol/L (23-31); Chloride 100 mmol/L (98-107); Estimated GFR 103; Globulin 2.5 g/dL (2.4-3.5); Glucose 161 mg/dL (80-115); Potassium 4.6 mmol/L (3.5-5.1); Protein, Total 5.4 g/dL (5.8-8.1); Sodium 137 mmol/L (136-145)
[2022-01-17] MEDS: Morphine 4 MG/ML VIAL SLOW IVP PRN (16:24)
[2022-01-17] MEDS: Rosuvastatin 20 MG TAB PO SCH (19:58)
[2022-01-17] MEDS: Zolpidem Tartrate 5 MG TAB PO SCH (19:59)
[2022-01-17] MEDS: Latanoprost 0.005% Ophth Soln 2.5 ml Bottle EA EYE SCH (20:01)
[2022-01-18] MEDS: Acetaminophen/Codeine 30-300mg Tablet PO PRN (00:42)
[2022-01-18] MEDS: guaiFENesin/Codeine 200 mg/20 mg 10 ml Cup PO PRN ×2 (00:42→11:30)
[2022-01-18 03:56] LABS: Hemoglobin 11.4 g/dL (12.0-16.0); Mean Corpuscular Hemoglobin 34.3 pg (27.0-31.0); Mean Platelet Volume 8.5 fL (7.4-10.4); Platelet Count 164 10x3/uL (130-400); Red Blood Cell (RBC) Count 3.32 mill/uL (4.20-5.40); White Blood Cell (WBC) Count 26.8 10x3/uL (4.8-10.8)
[2022-01-18 04:11] LABS: Magnesium 1.7 mg/dL (1.6-2.6); Troponin I Less than 0.010 ng/mL (< 0.028)
[2022-01-18 04:12] LABS: Anion Gap 13 mmol/L (10-20); BUN (Urea Nitrogen) 11 mg/dL (9.8-20.1); Calc. Creatinine Clearance 81 mL/min (70-130); Calcium 8.5 mg/dL (7.8-10.44); Carbon Dioxide 29 mmol/L (23-31); Chloride 98 mmol/L (98-107); Estimated GFR 101; Glucose 241 mg/dL (80-115); Potassium 4.7 mmol/L (3.5-5.1); Sodium 135 mmol/L (136-145)
[2022-01-18 04:16] LABS: Band 5 % (5-11); Lymphocytes 3 % (21-51); MDiff Complete? YES; Macrocytosis MODERATE=16-30 cells (100X) (0-5/hpf); Neutrophil 92 % (42-75); Ovalocytes SLIGHT = 2-5 cells (100X) (0-1/hpf); Platelet Morphology Comment Appears Adequate
[2022-01-18] MEDS: Morphine 4 MG/ML VIAL SLOW IVP PRN ×2 (04:21→11:30)
[2022-01-18] MEDS ORDERED: Magnesium Sulfate In Water 4 GM in Premix Bag 1 BAG IVPB SCH (04:30)
[2022-01-18] MEDS: Mometasone/Formoterol 200/5 60 PUFF INH SCH ×2 (06:50→20:44)
[2022-01-18] MEDS: Benzonatate 100 MG CAP PO SCH ×3 (08:27→21:18)
[2022-01-18] MEDS: clonazePAM 1 MG TAB PO SCH (08:27)
[2022-01-18] MEDS: DULoxetine 60 MG CAP PO SCH (08:28)
[2022-01-18] MEDS: Folic Acid 1 MG TAB PO SCH (08:28)
[2022-01-18] MEDS: Loratadine 10 MG TAB PO SCH (08:28)
[2022-01-18] MEDS: Gabapentin 400 MG CAP PO SCH ×4 (08:28→21:19)
[2022-01-18] MEDS: Hydroxychloroquine Sulfate 200 MG TAB PO SCH (08:28)
[2022-01-18] MEDS: Estradiol 1 MG TAB PO SCH (08:28)
[2022-01-18] MEDS: Enoxaparin Sodium 40 MG/0.4 ML SYRINGE SC SCH (08:28)
[2022-01-18] MEDS: guaiFENesin ER 600 MG TAB PO SCH ×2 (08:29→21:22)
[2022-01-18] MEDS: Morphine ER 15 MG TAB PO SCH ×2 (08:29→21:20)
[2022-01-18] MEDS: Methocarbamol 500 MG TAB PO SCH ×4 (08:29→21:22)
[2022-01-18] MEDS: Multivit, Therapeutic 1 TAB PO SCH (08:30)
[2022-01-18] MEDS: Polyethylene Glycol 3350 17 GM Packet PO SCH (08:30)
[2022-01-18] MEDS: Trospium 20 MG TAB PO SCH ×2 (08:30→21:18)
[2022-01-18] MEDS: methylPREDNISolone Sod Succ 40 MG VIAL IVP SCH ×2 (08:30→21:22)
[2022-01-18] MEDS: Senokot S 8.6-50 MG TAB PO SCH ×2 (08:30→21:27)
[2022-01-18] MEDS: Latanoprost 0.005% Ophth Soln 2.5 ml Bottle EA EYE SCH (21:17)
[2022-01-18] MEDS: Rosuvastatin 20 MG TAB PO SCH (21:18)
[2022-01-18] MEDS: Zolpidem Tartrate 5 MG TAB PO SCH (21:20)
[2022-01-19] MEDS: Morphine 4 MG/ML VIAL SLOW IVP PRN ×2 (00:33→19:29)
[2022-01-19] MEDS: guaiFENesin/Codeine 200 mg/20 mg 10 ml Cup PO PRN (04:37)
[2022-01-19 06:01] LABS: Anion Gap 13 mmol/L (10-20); BUN (Urea Nitrogen) 12 mg/dL (9.8-20.1); Calc. Creatinine Clearance 71 mL/min (70-130); Carbon Dioxide 29 mmol/L (23-31); Chloride 100 mmol/L (98-107); Estimated GFR 98; Magnesium 1.7 mg/dL (1.6-2.6); Potassium 4.2 mmol/L (3.5-5.1); Sodium 138 mmol/L (136-145)
[2022-01-19 06:04] LABS: Glucose 447 mg/dL (80-115)
[2022-01-19] MEDS ORDERED: Dextrose 5% in Water 1,000 ML IV PRN (06:17)
[2022-01-19] MEDS ORDERED: HumaLOG 300 UNITS/3 ML VIAL SC PRN (06:17)
[2022-01-19] MEDS ORDERED: Dextrose 50% Abboject 50 ML SYRINGE SLOW IVP PRN (06:17)
[2022-01-19 06:28] LABS: Band 8 % (5-11); Hemoglobin 10.8 g/dL (12.0-16.0); Hypochromia SLIGHT = 6-15 cells (100X) (0-5/hpf); Lymphocytes 1 % (21-51); MDiff Complete? YES; Macrocytosis SLIGHT = 6-15 cells (100X) (0-5/hpf); Mean Corpuscular Hemoglobin 34.7 pg (27.0-31.0); Mean Platelet Volume 9.2 fL (7.4-10.4); Neutrophil 91 % (42-75); Platelet Count 124 10x3/uL (130-400); Platelet Morphology Comment Appears Adequate; RBC Distribution Width 11.8 % (11.5-14.5); Red Blood Cell (RBC) Count 3.12 mill/uL (4.20-5.40); White Blood Cell (WBC) Count 9.2 10x3/uL (4.8-10.8)
[2022-01-19] MEDS: Mometasone/Formoterol 200/5 60 PUFF INH SCH ×2 (06:42→19:32)
[2022-01-19] MEDS: methylPREDNISolone Sod Succ 40 MG VIAL IVP SCH ×2 (08:07→21:33)
[2022-01-19] MEDS: Benzonatate 100 MG CAP PO SCH ×3 (08:07→21:29)
[2022-01-19] MEDS: Morphine ER 15 MG TAB PO SCH ×2 (08:08→21:28)
[2022-01-19] MEDS: clonazePAM 1 MG TAB PO SCH (08:08)
[2022-01-19] MEDS: Folic Acid 1 MG TAB PO SCH (08:08)
[2022-01-19] MEDS: Trospium 20 MG TAB PO SCH ×2 (08:08→21:25)
[2022-01-19] MEDS: Hydroxychloroquine Sulfate 200 MG TAB PO SCH (08:09)
[2022-01-19] MEDS: Senokot S 8.6-50 MG TAB PO SCH ×2 (08:09→21:45)
[2022-01-19] MEDS: Gabapentin 400 MG CAP PO SCH ×4 (08:09→21:26)
[2022-01-19] MEDS: Loratadine 10 MG TAB PO SCH (08:09)
[2022-01-19] MEDS: guaiFENesin ER 600 MG TAB PO SCH ×2 (08:10→21:28)
[2022-01-19] MEDS: Methocarbamol 500 MG TAB PO SCH ×4 (08:10→21:30)
[2022-01-19] MEDS: Multivit, Therapeutic 1 TAB PO SCH (08:10)
[2022-01-19] MEDS: Magnesium Oxide 400 MG TAB PO SCH (08:10)
[2022-01-19] MEDS: DULoxetine 60 MG CAP PO SCH (08:10)
[2022-01-19] MEDS: Polyethylene Glycol 3350 17 GM Packet PO SCH (08:15)
[2022-01-19] MEDS: Estradiol 1 MG TAB PO SCH (10:55)
[2022-01-19] MEDS ORDERED: Bupivacaine/Epinephrine 0.25% 30 ML VIAL ONE (14:16)
[2022-01-19] MEDS ORDERED: Lidocaine 1% (PF) 30 ML VIAL ONE (14:16)
[2022-01-19] MEDS ORDERED: CEFAZOLIN 2 GM VIAL ONE (14:58)
[2022-01-19] MEDS ORDERED: Sodium Chloride 0.9% 100 ML ONE (14:58)
[2022-01-19] MEDS ORDERED: fentaNYL PF 100 MCG/2 ML SYRINGE ONE (15:01)
[2022-01-19] MEDS ORDERED: Midazolam HCl 2 mg/2 ml Vial ONE (15:01)
[2022-01-19] MEDS ORDERED: FENTANYL 50 MCG/ML 1 ML VIAL ONE (15:50)
[2022-01-19] MEDS: Latanoprost 0.005% Ophth Soln 2.5 ml Bottle EA EYE SCH (21:24)
[2022-01-19] MEDS: Zolpidem Tartrate 5 MG TAB PO SCH (21:25)
[2022-01-19] MEDS: Rosuvastatin 20 MG TAB PO SCH (21:33)
[2022-01-20] MEDS: HumaLOG 300 UNITS/3 ML VIAL SC PRN ×4 (00:07→23:39)
[2022-01-20] MEDS: Morphine 4 MG/ML VIAL SLOW IVP PRN ×3 (00:12→14:32)
[2022-01-20] MEDS: guaiFENesin/Codeine 200 mg/20 mg 10 ml Cup PO PRN (03:40)
[2022-01-20] MEDS: Mometasone/Formoterol 200/5 60 PUFF INH SCH ×2 (06:56→19:20)
[2022-01-20] MEDS: Estradiol 1 MG TAB PO SCH (08:47)
[2022-01-20] MEDS: Gabapentin 400 MG CAP PO SCH ×4 (08:47→21:10)
[2022-01-20] MEDS: Methocarbamol 500 MG TAB PO SCH ×4 (08:48→21:09)
[2022-01-20] MEDS: Trospium 20 MG TAB PO SCH ×2 (08:48→21:09)
[2022-01-20] MEDS: clonazePAM 1 MG TAB PO SCH (08:48)
[2022-01-20] MEDS: Morphine ER 15 MG TAB PO SCH (08:49)
[2022-01-20] MEDS: Magnesium Oxide 400 MG TAB PO SCH (08:50)
[2022-01-20] MEDS: Loratadine 10 MG TAB PO SCH (08:50)
[2022-01-20] MEDS: DULoxetine 60 MG CAP PO SCH (08:50)
[2022-01-20] MEDS: predniSONE 20 MG TAB PO SCH ×2 (08:50→17:09)
[2022-01-20] MEDS: Multivit, Therapeutic 1 TAB PO SCH (08:51)
[2022-01-20] MEDS: Hydroxychloroquine Sulfate 200 MG TAB PO SCH (08:51)
[2022-01-20] MEDS: guaiFENesin ER 600 MG TAB PO SCH ×2 (08:51→21:09)
[2022-01-20] MEDS: Benzonatate 100 MG CAP PO SCH ×3 (08:51→21:08)
[2022-01-20] MEDS: Folic Acid 1 MG TAB PO SCH (08:52)
[2022-01-20] MEDS ORDERED: methylPREDNISolone Sod Succ 40 MG VIAL IVP SCH (09:00)
[2022-01-20] MEDS: Polyethylene Glycol 3350 17 GM Packet PO SCH (09:29)
[2022-01-20] MEDS: Senokot S 8.6-50 MG TAB PO SCH ×2 (09:29→23:38)
[2022-01-20] MEDS: Enoxaparin Sodium 40 MG/0.4 ML SYRINGE SC SCH (10:21)
[2022-01-20] MEDS ORDERED: NPH, Human Insulin Isophane 300 UNIT/3 ML VIAL SC SCH (15:00)
[2022-01-20] MEDS ORDERED: Insulin NPH Human Isophane 100 UNIT/ML (10 ML VIAL) SC SCH (16:45)
[2022-01-20] MEDS ORDERED: Electrolyte Replacement Protocol FS SCH (19:15)
[2022-01-20] MEDS: Zolpidem Tartrate 5 MG TAB PO SCH (21:09)
[2022-01-20] MEDS: Rosuvastatin 20 MG TAB PO SCH (21:10)
[2022-01-20] MEDS: Latanoprost 0.005% Ophth Soln 2.5 ml Bottle EA EYE SCH (21:10)
[2022-01-21] MEDS: guaiFENesin/Codeine 200 mg/20 mg 10 ml Cup PO PRN ×2 (03:45→19:58)
[2022-01-21 05:31] LABS: Anion Gap 12 mmol/L (10-20); BUN (Urea Nitrogen) 11 mg/dL (9.8-20.1); Calc. Creatinine Clearance 77 mL/min (70-130); Calcium 8.1 mg/dL (7.8-10.44); Carbon Dioxide 29 mmol/L (23-31); Chloride 102 mmol/L (98-107); Estimated GFR 100; Glucose 371 mg/dL (80-115); Magnesium 1.6 mg/dL (1.6-2.6); Potassium 3.4 mmol/L (3.5-5.1); Sodium 140 mmol/L (136-145)
[2022-01-21 05:41] LABS: #Lymphocytes 0.7 thou/uL (1.20-3.40); #Monocytes 0.2 thou/uL (0.11-0.59); #Neutrophils 0.8 thou/uL (1.40-6.50); %Basophils 0.4 % (0.0-1.0); %Eosinophils 1.2 % (0.0-10.0); %Lymphocytes 41.6 % (21.0-51.0); %Monocytes 13.7 % (0.0-10.0); %Neutrophils 43.1 % (42.0-75.0); Anisocytosis SLIGHT = 6-15 cells (100X) (0-5/hpf); Band 12 % (5-11); Eosinophils 2 % (0-10); Hemoglobin 9.8 g/dL (12.0-16.0); Hypochromia SLIGHT = 6-15 cells (100X) (0-5/hpf); Lymphocytes 39 % (21-51); MDiff Complete? YES; Mean Corpuscular HGB CONC 32.9 g/dL (32.0-36.0); Mean Corpuscular Hemoglobin 35.1 pg (27.0-31.0); Mean Platelet Volume 9.4 fL (7.4-10.4); Monocytes 16 % (0-10); Neutrophil 31 % (42-75); Platelet Count 54 10x3/uL (130-400); Platelet Morphology Comment Appears Adequate; Polychromasia SLIGHT = 2-3 cells (100X) (0-2/hpf); RBC Distribution Width 11.6 % (11.5-14.5); Red Blood Cell (RBC) Count 2.78 mill/uL (4.20-5.40); White Blood Cell (WBC) Count 1.8 10x3/uL (4.8-10.8)
[2022-01-21] MEDS: HumaLOG 300 UNITS/3 ML VIAL SC PRN (07:22)
[2022-01-21] MEDS ORDERED: Magnesium 2 GM/50 ML(in water) 2 GM in Premix Bag 1 BAG IVPB SCH (08:00)
[2022-01-21] MEDS ORDERED: Potassium Chloride 20 MEQ TAB PO SCH (08:00)
[2022-01-21] MEDS ORDERED: predniSONE 20 MG TAB PO SCH (08:00)
[2022-01-21] MEDS ORDERED: Insulin NPH Human Isophane 100 UNIT/ML (10 ML VIAL) SC SCH (08:30)
[2022-01-21] MEDS: Acetaminophen/Codeine 30-300mg Tablet PO PRN ×3 (08:58→19:58)
[2022-01-21] MEDS: clonazePAM 1 MG TAB PO SCH (08:59)
[2022-01-21] MEDS ORDERED: Morphine ER 15 MG TAB PO SCH (09:00)
[2022-01-21] MEDS: Loratadine 10 MG TAB PO SCH (09:01)
[2022-01-21] MEDS: Folic Acid 1 MG TAB PO SCH (09:01)
[2022-01-21] MEDS: guaiFENesin ER 600 MG TAB PO SCH ×2 (09:01→20:01)
[2022-01-21] MEDS: Gabapentin 400 MG CAP PO SCH ×4 (09:01→20:00)
[2022-01-21] MEDS: Trospium 20 MG TAB PO SCH ×2 (09:02→20:02)
[2022-01-21] MEDS: Benzonatate 100 MG CAP PO SCH ×3 (09:02→20:01)
[2022-01-21] MEDS: Multivit, Therapeutic 1 TAB PO SCH (09:03)
[2022-01-21] MEDS: DULoxetine 60 MG CAP PO SCH (09:05)
[2022-01-21] MEDS: Magnesium Oxide 400 MG TAB PO SCH (09:05)
[2022-01-21] MEDS: Estradiol 1 MG TAB PO SCH (09:05)
[2022-01-21] MEDS: Hydroxychloroquine Sulfate 200 MG TAB PO SCH (09:05)
[2022-01-21] MEDS: Methocarbamol 500 MG TAB PO SCH (09:06)
[2022-01-21] MEDS: Senokot S 8.6-50 MG TAB PO SCH ×2 (09:12→19:41)
[2022-01-21] MEDS: Polyethylene Glycol 3350 17 GM Packet PO SCH (09:12)
[2022-01-21] MEDS: Mometasone/Formoterol 200/5 60 PUFF INH SCH ×2 (11:02→20:52)
[2022-01-21] MEDS ORDERED: Ondansetron PF 4 MG/2 ML Vial IVP PRN (17:14)
[2022-01-21] MEDS ORDERED: Ondansetron ODT 4 MG TAB PO PRN (17:14)
[2022-01-21] MEDS: Latanoprost 0.005% Ophth Soln 2.5 ml Bottle EA EYE SCH (19:57)
[2022-01-21] MEDS: Zolpidem Tartrate 5 MG TAB PO SCH (20:01)
[2022-01-21] MEDS: Rosuvastatin 20 MG TAB PO SCH (20:01)
[2022-01-22] MEDS: HumaLOG 300 UNITS/3 ML VIAL SC PRN (05:48)
[2022-01-22 05:53] LABS: Anion Gap 9 mmol/L (10-20); BUN (Urea Nitrogen) 9 mg/dL (9.8-20.1); Calc. Creatinine Clearance 81 mL/min (70-130); Carbon Dioxide 30 mmol/L (23-31); Chloride 102 mmol/L (98-107); Potassium 3.5 mmol/L (3.5-5.1); Sodium 137 mmol/L (136-145)
[2022-01-22 05:54] LABS: Calcium 7.9 mg/dL (7.8-10.44); Estimated GFR 101; Glucose 295 mg/dL (80-115)
[2022-01-22 07:49] LABS: Hemoglobin 9.4 g/dL (12.0-16.0); Mean Corpuscular HGB CONC 33.2 g/dL (32.0-36.0); Mean Corpuscular Hemoglobin 35.1 pg (27.0-31.0); Mean Platelet Volume 10.7 fL (7.4-10.4); Platelet Count 34 10x3/uL (130-400); RBC Distribution Width 11.7 % (11.5-14.5); Red Blood Cell (RBC) Count 2.67 mill/uL (4.20-5.40); White Blood Cell (WBC) Count 4.1 10x3/uL (4.8-10.8)
[2022-01-22] MEDS ORDERED: Potassium Chloride 20 MEQ TAB PO SCH (08:00)
[2022-01-22] MEDS: Mometasone/Formoterol 200/5 60 PUFF INH SCH ×2 (08:04→18:17)
[2022-01-22] MEDS: Polyethylene Glycol 3350 17 GM Packet PO SCH (08:27)
[2022-01-22] MEDS: Senokot S 8.6-50 MG TAB PO SCH (08:27)
[2022-01-22] MEDS: Benzonatate 100 MG CAP PO SCH ×2 (08:29→17:12)
[2022-01-22] MEDS: guaiFENesin ER 600 MG TAB PO SCH (08:30)
[2022-01-22] MEDS: DULoxetine 60 MG CAP PO SCH (08:30)
[2022-01-22] MEDS: Folic Acid 1 MG TAB PO SCH (08:30)
[2022-01-22] MEDS: Gabapentin 400 MG CAP PO SCH ×3 (08:30→17:10)
[2022-01-22] MEDS: clonazePAM 1 MG TAB PO SCH (08:30)
[2022-01-22] MEDS: Loratadine 10 MG TAB PO SCH (08:30)
[2022-01-22] MEDS: Magnesium Oxide 400 MG TAB PO SCH (08:30)
[2022-01-22] MEDS: Multivit, Therapeutic 1 TAB PO SCH (08:30)
[2022-01-22] MEDS: Trospium 20 MG TAB PO SCH (08:31)
[2022-01-22] MEDS: Acetaminophen/Codeine 30-300mg Tablet PO PRN ×2 (08:40→17:14)
[2022-01-22] MEDS: Hydroxychloroquine Sulfate 200 MG TAB PO SCH (08:41)
[2022-01-22] MEDS: Estradiol 1 MG TAB PO SCH (08:41)
[2022-01-22 08:58] VITALS: BP 106/57; TEMP 98.2
[2022-01-22 10:53] LABS: Band 28 % (5-11); Eosinophils 1 % (0-10); Giant Platelets SLIGHT; Lymphocytes 41 % (21-51); MDiff Complete? YES; Metamyelocyte 4 % (0-0); Monocytes 12 % (0-10); Myelocyte 1 % (0-0); Neutrophil 5 % (42-75); Ovalocytes SLIGHT = 2-5 cells (100X) (0-1/hpf); Platelet Morphology Comment Appears Decreased; Polychromasia SLIGHT = 2-3 cells (100X) (0-2/hpf); Reactive Lymphocytes 8 % (0-10); Toxic Granulation SLIGHT
[2022-01-22] MEDS ORDERED: HYDROcodone/Acetaminophen 5/325 mg Tablet PO PRN (12:22)
[2022-01-22] MEDS ORDERED: HumaLOG 300 UNITS/3 ML VIAL SC PRN (13:16)
[2022-01-22] MEDS ORDERED: predniSONE 20 MG TAB PO SCH (13:30)
== END 2022-01-22 18:55 | disposition home or self-care (01) | DRG 180 ==
LOC: 2NO 11:20 → MSONC 01-10 16:11 → IMCU/EMU 01-10 20:32 → MSONC 01-12 13:08
PROVIDERS: ADMIT Internal Medicine; ATTEND Internal Medicine
PROC: 0W993ZZ Drainage of Right Pleural Cavity, Percutaneous Approach (ICD-10-PCS; principal; 2022-01-05)
PROC: 4A023N7 Measurement of Cardiac Sampling and Pressure, Left Heart, Percutaneous Approach (ICD-10-PCS; 2022-01-07)
PROC: B2111ZZ Fluoroscopy of Multiple Coronary Arteries using Low Osmolar Contrast (ICD-10-PCS; 2022-01-07)
PROC: B2151ZZ Fluoroscopy of Left Heart using Low Osmolar Contrast (ICD-10-PCS; 2022-01-07)
PROC: 02HV33Z Insertion of Infusion Device into Superior Vena Cava, Percutaneous Approach (ICD-10-PCS; 2022-01-08)
PROC: B548ZZA Ultrasonography of Superior Vena Cava, Guidance (ICD-10-PCS; 2022-01-08)
PROC: B5181ZA Fluoroscopy of Superior Vena Cava using Low Osmolar Contrast, Guidance (ICD-10-PCS; 2022-01-08)
PROC: 5A09357 Assistance with Respiratory Ventilation, Less than 24 Consecutive Hours, Continuous Positive Airway Pressure (ICD-10-PCS; 2022-01-10)
PROC: 5A0935A Assistance with Respiratory Ventilation, Less than 24 Consecutive Hours, High Flow/Velocity Cannula (ICD-10-PCS; 2022-01-11)
PROC: 3E04305 Introduction of Other Antineoplastic into Central Vein, Percutaneous Approach (ICD-10-PCS; 2022-01-13)
PROC: 0JH63XZ Insertion of Tunneled Vascular Access Device into Chest Subcutaneous Tissue and Fascia, Percutaneous Approach (ICD-10-PCS; 2022-01-19)
PROC: 02HV33Z Insertion of Infusion Device into Superior Vena Cava, Percutaneous Approach (ICD-10-PCS; 2022-01-19)
PROC: B5181ZA Fluoroscopy of Superior Vena Cava using Low Osmolar Contrast, Guidance (ICD-10-PCS; 2022-01-19)
DX: C34.90 Malignant neoplasm of unspecified part of unspecified bronchus or lung (principal); D61.810 Antineoplastic chemotherapy induced pancytopenia; E43 Unspecified severe protein-calorie malnutrition; J96.21 Acute and chronic respiratory failure with hypoxia; C77.1 Secondary and unspecified malignant neoplasm of intrathoracic lymph nodes; J91.0 Malignant pleural effusion; R64 Cachexia; I47.20 Ventricular tachycardia, unspecified; C78.7 Secondary malignant neoplasm of liver and intrahepatic bile duct; J81.1 Chronic pulmonary edema; E87.1 Hypo-osmolality and hyponatremia; J98.11 Atelectasis; I25.10 Atherosclerotic heart disease of native coronary artery without angina pectoris; F17.210 Nicotine dependence, cigarettes, uncomplicated; J43.9 Emphysema, unspecified; K70.30 Alcoholic cirrhosis of liver without ascites; K21.9 Gastro-esophageal reflux disease without esophagitis; H40.9 Unspecified glaucoma; I10 Essential (primary) hypertension; Z66 Do not resuscitate; E78.5 Hyperlipidemia, unspecified; E83.42 Hypomagnesemia; G89.4 Chronic pain syndrome; T45.1X5A Adverse effect of antineoplastic and immunosuppressive drugs, initial encounter; Y92.239 Unspecified place in hospital as the place of occurrence of the external cause; F41.9 Anxiety disorder, unspecified; G62.9 Polyneuropathy, unspecified; E87.6 Hypokalemia; R73.9 Hyperglycemia, unspecified; G93.0 Cerebral cysts; E78.00 Pure hypercholesterolemia, unspecified; F32.A Depression, unspecified; M41.9 Scoliosis, unspecified; D89.89 Other specified disorders involving the immune mechanism, not elsewhere classified; R74.01 Elevation of levels of liver transaminase levels; Z88.2 Allergy status to sulfonamides; Z79.899 Other long term (current) drug therapy; Z79.52 Long term (current) use of systemic steroids; Z90.710 Acquired absence of both cervix and uterus; Z90.49 Acquired absence of other specified parts of digestive tract; Z98.1 Arthrodesis status; Z82.49 Family history of ischemic heart disease and other diseases of the circulatory system; Z80.1 Family history of malignant neoplasm of trachea, bronchus and lung; Z71.6 Tobacco abuse counseling; Z68.22 Body mass index [BMI] 22.0-22.9, adult
CPT/HCPCS: 36415; 36416; 36569; 36600; 70553; 71045; 71046; 71275; 74177; 74230; 76604; 80048; 80053; 82805; 82945; 83615; 83735; 83880; 84145; 84157; 84484; 84550; 85025; 85060; 87070; 87205; 88112; 88305; 88341; 88342; 88360; 89051; 93005; 93010; 93306; 93458; 94660; 99152; A9579; C1751; C1769; C1788; C1887; J0295; J1100; J1170; J1250; J1453; J1642; J1644; J1650; J1815; J1940; J2001; J2250; J2270; J2469; J2920; J3010; J3475; J3480; J3490; J7030; J7050; J7512; J7620; J9045; J9181; Q5108; Q9967

== ENCOUNTER 2022-02-02 11:08 | Emergency (ER) | payer OTHER, MEDICARE ==
[2022-02-02 12:18] LABS: #Eosinphils 0.1 thou/uL (0.0-0.7); #Lymphocytes 1.5 thou/uL (1.20-3.40); #Monocytes 0.9 thou/uL (0.11-0.59); #Neutrophils 10.9 thou/uL (1.40-6.50); %Basophils 0.4 % (0.0-1.0); %Eosinophils 0.4 % (0.0-10.0); %Lymphocytes 11.4 % (21.0-51.0); %Monocytes 6.9 % (0.0-10.0); Hemoglobin 10.4 g/dL (12.0-16.0); Mean Corpuscular HGB CONC 32.9 g/dL (32.0-36.0); Mean Platelet Volume 7.1 fL (7.4-10.4); Platelet Count 397 10x3/uL (130-400); RBC Distribution Width 14.1 % (11.5-14.5); Red Blood Cell (RBC) Count 2.97 mill/uL (4.20-5.40); White Blood Cell (WBC) Count 13.4 10x3/uL (4.8-10.8)
[2022-02-02 12:20] LABS: MDiff Complete? YES; Macrocytosis SLIGHT = 6-15 cells (100X) (0-5/hpf); Platelet Morphology Comment Appears Adequate; Polychromasia MODERATE = 3-4 cells (100X) (0-2/hpf)
[2022-02-02 12:24] LABS: ALT (SGPT) 23 U/L (8-55); AST (SGOT) 21 U/L (5-34); Albumin 3.2 g/dL (3.4-4.8); Alkaline Phosphatase 326 U/L (40-110); Anion Gap 14 mmol/L (10-20); BUN (Urea Nitrogen) 9 mg/dL (9.8-20.1); Bilirubin, Total 0.6 mg/dL (0.2-1.2); Calc. Creatinine Clearance 0 mL/min (70-130); Calcium 8.5 mg/dL (7.8-10.44); Carbon Dioxide 24 mmol/L (23-31); Chloride 107 mmol/L (98-107); Estimated GFR 103; Globulin 2.1 g/dL (2.4-3.5); Glucose 63 mg/dL (80-115); Potassium 4.2 mmol/L (3.5-5.1); Protein, Total 5.3 g/dL (5.8-8.1); Sodium 141 mmol/L (136-145)
[2022-02-02] MEDS ORDERED: FENTANYL 50 MCG/ML 1 ML VIAL ONE (12:32)
[2022-02-02] MEDS ORDERED: Ketorolac Tromethamine 30 MG/ML VIAL ONE (12:32)
== END 2022-02-02 14:32 | disposition home or self-care (01) ==
LOC: ERS 11:08
DX: S22.49XA Multiple fractures of ribs, unspecified side, initial encounter for closed fracture (principal); I10 Essential (primary) hypertension; E78.5 Hyperlipidemia, unspecified; J44.9 Chronic obstructive pulmonary disease, unspecified; W01.0XXA Fall on same level from slipping, tripping and stumbling without subsequent striking against object, initial encounter; Z87.891 Personal history of nicotine dependence
CPT/HCPCS: 36415; 71045; 80053; 82550; 83880; 84484; 85025; 93005; 96374; 96375; J1885; J3010

== ENCOUNTER 2022-02-13 23:50 | Inpatient (IN) | payer MEDICARE ==
[2022-02-14 00:23] LABS: Hemoglobin 10.1 g/dL (12.0-16.0); Mean Corpuscular HGB CONC 33.9 g/dL (32.0-36.0); Mean Corpuscular Hemoglobin 36.4 pg (27.0-31.0); Platelet Count 286 10x3/uL (130-400); RBC Distribution Width 14.4 % (11.5-14.5); Red Blood Cell (RBC) Count 2.78 mill/uL (4.20-5.40); White Blood Cell (WBC) Count 22.3 10x3/uL (4.8-10.8)
[2022-02-14 00:25] LABS: Bacteria/HPF None Seen HPF (None Seen); Bilirubin Negative (Negative); Blood, Urine 1+ (Negative); Clarity Turbid (Clear); Glucose, Urine (Dipstick) 100 mg/dL (Negative); Ketone, Urine Trace mg/dL (Negative); Leukocyte Negative Leu/uL (Negative); Nitrite Negative (Negative); Protein, Urine (Dipstick) 70 mg/dL (Neg-Trace); RBC/HPF 0-3 HPF (0-3); Specific Gravity, Urine 1.021 (1.002-1.036); Urobilinogen Normal mg/dL (Less than 2); WBC/HPF 21-50 HPF (0-3); pH, Urine 5.5 (5.0-9.0)
[2022-02-14] MEDS ORDERED: Acetaminophen 500 MG TAB ONE (00:30)
[2022-02-14] MEDS ORDERED: Cefepime 2 GM VIAL ONE (00:30)
[2022-02-14 00:42] LABS: ALT (SGPT) 16 U/L (8-55); AST (SGOT) 45 U/L (5-34); Alkaline Phosphatase 360 U/L (40-110); Anion Gap 16 mmol/L (10-20); BUN (Urea Nitrogen) 11 mg/dL (9.8-20.1); Bilirubin, Total 0.5 mg/dL (0.2-1.2); Calc. Creatinine Clearance 0 mL/min (70-130); Calcium 8.6 mg/dL (7.8-10.44); Carbon Dioxide 19 mmol/L (23-31); Chloride 104 mmol/L (98-107); Estimated GFR 89; Globulin 3.1 g/dL (2.4-3.5); Glucose 115 mg/dL (80-115); Magnesium 1.4 mg/dL (1.6-2.6); Potassium 4.1 mmol/L (3.5-5.1); Protein, Total 6.1 g/dL (5.8-8.1); Sodium 135 mmol/L (136-145)
[2022-02-14 00:45] LABS: MDiff Complete? YES
[2022-02-14 00:46] LABS: Band 11 % (5-11); Hypochromia SLIGHT = 6-15 cells (100X) (0-5/hpf); Lymphocytes 14 % (21-51); Monocytes 7 % (0-10); Neutrophil 67 % (42-75); Platelet Morphology Comment Appears Adequate; Reactive Lymphocytes 1 % (0-10)
[2022-02-14] MEDS ORDERED: Vancomycin 1 GM/200 ML (FROZEN) BAG ONE (01:10)
[2022-02-14 01:11] LABS: CKMB 2.9 ng/mL (0-6.6)
[2022-02-14 01:36] LABS: SARS-CoV-2 NAA Rapid Test Not Detected (NotDetected)
[2022-02-14] MEDS ORDERED: Ondansetron ODT 4 MG TAB PO PRN (02:03)
[2022-02-14] MEDS ORDERED: Acetaminophen 650 MG Suppository PR PRN (02:03)
[2022-02-14] MEDS ORDERED: Doxycycline 100 MG in Sodium Chloride 0.9% 100 ML IVPB SCH (03:00)
[2022-02-14] MEDS ORDERED: Magnesium Sulfate In Water 4 GM in Premix Bag 1 BAG IVPB SCH (03:00)
[2022-02-14] MEDS: Sodium Chloride 0.9% 1,000 ML IV SCH ×2 (04:18→17:51)
[2022-02-14 04:53] LABS: Hemoglobin 8.7 g/dL (12.0-16.0); Mean Corpuscular HGB CONC 33.5 g/dL (32.0-36.0); Mean Corpuscular Hemoglobin 36.8 pg (27.0-31.0); Mean Platelet Volume 7.3 fL (7.4-10.4); Platelet Count 205 10x3/uL (130-400); RBC Distribution Width 14.4 % (11.5-14.5); Red Blood Cell (RBC) Count 2.36 mill/uL (4.20-5.40); White Blood Cell (WBC) Count 22.8 10x3/uL (4.8-10.8)
[2022-02-14 05:09] LABS: Anion Gap 11 mmol/L (10-20); BUN (Urea Nitrogen) 10 mg/dL (9.8-20.1); Calc. Creatinine Clearance 0 mL/min (70-130); Calcium 7.1 mg/dL (7.8-10.44); Carbon Dioxide 19 mmol/L (23-31); Chloride 99 mmol/L (98-107); Critical Call Chem Troponin I RESULT DECREASING; Estimated GFR 84; Glucose 481 mg/dL (80-115); Potassium 3.1 mmol/L (3.5-5.1); Sodium 126 mmol/L (136-145); Troponin I 0.682 ng/mL (< 0.028)
[2022-02-14 05:30] LABS: Band 24 % (5-11); Hypochromia SLIGHT = 6-15 cells (100X) (0-5/hpf); Lymphocytes 9 % (21-51); MDiff Complete? YES; Macrocytosis SLIGHT = 6-15 cells (100X) (0-5/hpf); Metamyelocyte 1 % (0-0); Neutrophil 66 % (42-75); Platelet Morphology Comment Appears Adequate
[2022-02-14] MEDS ORDERED: HumaLOG 300 UNITS/3 ML VIAL SC PRN ×2 (05:41)
[2022-02-14] MEDS ORDERED: Dextrose 5% in Water 1,000 ML IV PRN (05:41)
[2022-02-14] MEDS ORDERED: Dextrose 50% Abboject 50 ML SYRINGE SLOW IVP PRN (05:41)
[2022-02-14] MEDS: Azithromycin 500 MG in Sodium Chloride 0.9% 250 ML 250 ML IVPB SCH (06:20)
[2022-02-14] MEDS ORDERED: Cefepime 2 GM in Sodium Chloride 0.9% 100 ML IVPB SCH ×2 (08:00→12:00)
[2022-02-14] MEDS ORDERED: Potassium Chloride 20 MEQ TAB PO SCH (08:00)
[2022-02-14 08:01] LABS: Troponin I 0.503 ng/mL (< 0.028)
[2022-02-14 08:12] VITALS: BMI 22.5
[2022-02-14] MEDS: Acetaminophen 325 MG TAB PO PRN (08:45)
[2022-02-14] MEDS: Enoxaparin Sodium 40 MG/0.4 ML SYRINGE SC SCH (08:46)
[2022-02-14] MEDS: Ondansetron PF 4 MG/2 ML Vial IVP PRN (08:47)
[2022-02-14] MEDS ORDERED: FLUTICASONE FUROATE 100 MCG INH SCH (09:00)
[2022-02-14] MEDS: Morphine ER 30 MG TAB PO SCH ×2 (10:20→21:56)
[2022-02-14] MEDS: Trospium 20 MG TAB PO SCH ×2 (10:29→21:58)
[2022-02-14] MEDS: clonazePAM 1 MG TAB PO SCH (10:29)
[2022-02-14] MEDS: DULoxetine 60 MG CAP PO SCH (10:29)
[2022-02-14] MEDS: Acetaminophen/Codeine 30-300mg Tablet PO SCH ×4 (10:29→21:54)
[2022-02-14] MEDS: Gabapentin 400 MG CAP PO SCH ×4 (10:31→21:56)
[2022-02-14 10:45] LABS: Magnesium 2.9 mg/dL (1.6-2.6); Potassium 3.1 mmol/L (3.5-5.1)
[2022-02-14] MEDS: guaiFENesin 200 MG TAB PO PRN (11:48)
[2022-02-14] MEDS: Hydroxychloroquine Sulfate 200 MG TAB PO SCH (11:48)
[2022-02-14 17:33] LABS: RBC Count-Automated (BF) 3510 /cu.mm; WBC/Nucleated-Auto (BF) 437 /cu.mm
[2022-02-14 17:41] LABS: Pleural Fluid, Protein 2.1 g/dL
[2022-02-14 18:14] LABS: BF Color Yellow; Body Fluid Source Pleural Fluid; Clarity Hazy (Clear); Tube # EDTA
[2022-02-14] MEDS: Mometasone/Formoterol 200/5 60 PUFF INH SCH (18:18)
[2022-02-14 18:20] LABS: BF Segmented Neutrophils 44 %; Cell Count Non Hematic 7 %; Lymphocytes 47 %
[2022-02-14] MEDS: guaiFENesin/Codeine 200 mg/20 mg 10 ml Cup PO PRN (21:51)
[2022-02-14] MEDS: Latanoprost 0.005% Ophth Soln 2.5 ml Bottle EA EYE SCH (21:56)
[2022-02-14] MEDS: Rosuvastatin 20 MG TAB PO SCH (21:57)
[2022-02-15] MEDS: Cefepime 1 GM in Sodium Chloride 0.9% 100 ML IVPB SCH ×2 (00:11→11:45)
[2022-02-15] MEDS: Acetaminophen 325 MG TAB PO PRN (03:56)
[2022-02-15] MEDS: guaiFENesin 200 MG TAB PO PRN ×2 (04:00→13:19)
[2022-02-15] MEDS: Azithromycin 500 MG in Sodium Chloride 0.9% 250 ML 250 ML IVPB SCH (06:15)
[2022-02-15] MEDS: guaiFENesin/Codeine 200 mg/20 mg 10 ml Cup PO PRN (07:51)
[2022-02-15] MEDS: Mometasone/Formoterol 200/5 60 PUFF INH SCH ×2 (08:26→18:54)
[2022-02-15] MEDS: clonazePAM 1 MG TAB PO SCH (09:14)
[2022-02-15] MEDS: Enoxaparin Sodium 40 MG/0.4 ML SYRINGE SC SCH (09:14)
[2022-02-15] MEDS: DULoxetine 60 MG CAP PO SCH (09:14)
[2022-02-15] MEDS: Gabapentin 400 MG CAP PO SCH ×4 (09:15→21:47)
[2022-02-15 09:16] LABS: ALT (SGPT) 18 U/L (8-55); AST (SGOT) 48 U/L (5-34); Albumin 2.6 g/dL (3.4-4.8); Alkaline Phosphatase 306 U/L (40-110); Anion Gap 16 mmol/L (10-20); BUN (Urea Nitrogen) 8 mg/dL (9.8-20.1); Bilirubin, Total 0.3 mg/dL (0.2-1.2); Calc. Creatinine Clearance 78 mL/min (70-130); Calcium 7.9 mg/dL (7.8-10.44); Carbon Dioxide 17 mmol/L (23-31); Chloride 109 mmol/L (98-107); Estimated GFR 100; Glucose 98 mg/dL (80-115); Protein, Total 5.6 g/dL (5.8-8.1); Sodium 137 mmol/L (136-145)
[2022-02-15] MEDS: Trospium 20 MG TAB PO SCH ×2 (09:16→21:43)
[2022-02-15] MEDS: Morphine ER 30 MG TAB PO SCH (09:16)
[2022-02-15] MEDS: Ondansetron PF 4 MG/2 ML Vial IVP PRN (10:16)
[2022-02-15] MEDS: Acetaminophen/Codeine 30-300mg Tablet PO SCH ×3 (11:41→13:17)
[2022-02-15] MEDS: Hydroxychloroquine Sulfate 200 MG TAB PO SCH (11:45)
[2022-02-15] MEDS ORDERED: Polyethylene Glycol 3350 17 GM Packet PO PRN (13:45)
[2022-02-15 16:54] LABS: Hemoglobin 9.4 g/dL (12.0-16.0); Mean Corpuscular HGB CONC 34.3 g/dL (32.0-36.0); Mean Corpuscular Hemoglobin 37.8 pg (27.0-31.0); Mean Platelet Volume 7.4 fL (7.4-10.4); Platelet Count 157 10x3/uL (130-400); RBC Distribution Width 14.4 % (11.5-14.5); Red Blood Cell (RBC) Count 2.48 mill/uL (4.20-5.40); White Blood Cell (WBC) Count 26.5 10x3/uL (4.8-10.8)
[2022-02-15 17:26] LABS: Band 17 % (5-11); Eosinophils 1 % (0-10); Lymphocytes 5 % (21-51); MDiff Complete? YES; Neutrophil 76 % (42-75); Platelet Morphology Comment Appears Adequate; Polychromasia SLIGHT = 2-3 cells (100X) (0-2/hpf); Reactive Lymphocytes 1 % (0-10)
[2022-02-15] MEDS: Ibuprofen 200 MG TAB PO PRN (18:05)
[2022-02-15] MEDS: Rosuvastatin 20 MG TAB PO SCH (21:41)
[2022-02-15] MEDS: guaiFENesin ER 600 MG TAB PO SCH (21:41)
[2022-02-15] MEDS: Senokot S 8.6-50 MG TAB PO SCH (21:42)
[2022-02-15] MEDS: Latanoprost 0.005% Ophth Soln 2.5 ml Bottle EA EYE SCH (21:47)
[2022-02-15] MEDS ORDERED: Sodium Chloride 0.9% 500 ML IV SCH ×2 (22:00→23:45)
[2022-02-15] MEDS: Cefepime 2 GM in Sodium Chloride 0.9% 100 ML IVPB SCH (23:54)
[2022-02-15] MEDS ORDERED: Midodrine HCl 5 MG TAB PO SCH (23:59)
[2022-02-16] MEDS: Acetaminophen/Codeine 30-300mg Tablet PO SCH ×2 (02:13→11:53)
[2022-02-16] MEDS: Morphine ER 30 MG TAB PO SCH (02:13)
[2022-02-16] MEDS ORDERED: GUAIFENESIN SF SOLN 200 MG/10 ML UDCUP PO PRN (02:26)
[2022-02-16] MEDS ORDERED: Midodrine HCl 5 MG TAB PO SCH (02:30)
[2022-02-16] MEDS ORDERED: Ketorolac Tromethamine 30 MG/ML VIAL IVP SCH (02:45)
[2022-02-16 05:08] LABS: Phosphorus 1.1 mg/dL (2.3-4.7)
[2022-02-16 05:10] LABS: ALT (SGPT) 20 U/L (8-55); AST (SGOT) 33 U/L (5-34); Albumin 2.4 g/dL (3.4-4.8); Alkaline Phosphatase 275 U/L (40-110); Anion Gap 11 mmol/L (10-20); BUN (Urea Nitrogen) 8 mg/dL (9.8-20.1); Bilirubin, Total 0.2 mg/dL (0.2-1.2); Calc. Creatinine Clearance 74 mL/min (70-130); Calcium 7.4 mg/dL (7.8-10.44); Carbon Dioxide 24 mmol/L (23-31); Chloride 108 mmol/L (98-107); Estimated GFR 99; Globulin 1.7 g/dL (2.4-3.5); Glucose 85 mg/dL (80-115); Magnesium 1.4 mg/dL (1.6-2.6); Potassium 3.6 mmol/L (3.5-5.1); Protein, Total 4.1 g/dL (5.8-8.1); Sodium 139 mmol/L (136-145)
[2022-02-16 05:17] LABS: Band 10 % (5-11); Lymphocytes 13 % (21-51); MDiff Complete? YES; Macrocytosis SLIGHT = 6-15 cells (100X) (0-5/hpf); Mean Corpuscular HGB CONC 33.7 g/dL (32.0-36.0); Mean Corpuscular Hemoglobin 37.2 pg (27.0-31.0); Mean Platelet Volume 7.9 fL (7.4-10.4); Monocytes 5 % (0-10); Neutrophil 72 % (42-75); Platelet Count 125 10x3/uL (130-400); Platelet Morphology Comment Appears Decreased; RBC Distribution Width 14.3 % (11.5-14.5); Red Blood Cell (RBC) Count 2.16 mill/uL (4.20-5.40); White Blood Cell (WBC) Count 13.9 10x3/uL (4.8-10.8)
[2022-02-16] MEDS ORDERED: PHOS-NAK 1 PKT PACK PO SCH (05:45)
[2022-02-16] MEDS ORDERED: Electrolyte Replacement Protocol 1 EACH FS SCH (06:15)
[2022-02-16] MEDS ORDERED: Electrolyte Replacement Protocol FS PRN (06:15)
[2022-02-16] MEDS ORDERED: Potassium Phosphate 30 MMOL in Sodium Chloride 0.9% 250 ML 250 ML IVPB SCH (06:15)
[2022-02-16] MEDS ORDERED: Magnesium Sulfate In Water 4 GM in Premix Bag 1 BAG IVPB SCH (06:45)
[2022-02-16] MEDS ORDERED: Magnesium Sulfate 4 GM in Sodium Chloride 0.9% 250 ML 250 ML IVPB SCH (06:45)
[2022-02-16] MEDS: Azithromycin 500 MG in Sodium Chloride 0.9% 250 ML 250 ML IVPB SCH (06:57)
[2022-02-16] MEDS: Mometasone/Formoterol 200/5 60 PUFF INH SCH ×2 (07:43→18:41)
[2022-02-16] MEDS: guaiFENesin ER 600 MG TAB PO SCH ×2 (08:42→21:08)
[2022-02-16] MEDS: DULoxetine 60 MG CAP PO SCH (08:42)
[2022-02-16] MEDS: clonazePAM 1 MG TAB PO SCH (08:42)
[2022-02-16] MEDS: Gabapentin 400 MG CAP PO SCH ×4 (08:42→21:08)
[2022-02-16] MEDS: Trospium 20 MG TAB PO SCH ×2 (08:42→21:08)
[2022-02-16] MEDS: Morphine ER 15 MG TAB PO SCH ×2 (08:42→21:09)
[2022-02-16] MEDS: Enoxaparin Sodium 40 MG/0.4 ML SYRINGE SC SCH (11:55)
[2022-02-16] MEDS: Senokot S 8.6-50 MG TAB PO SCH ×2 (11:56→21:11)
[2022-02-16] MEDS: Cefepime 2 GM in Sodium Chloride 0.9% 100 ML IVPB SCH (12:22)
[2022-02-16] MEDS: Hydroxychloroquine Sulfate 200 MG TAB PO SCH (12:22)
[2022-02-16] MEDS: PHOS-NAK 1 PKT PACK PO SCH ×2 (12:35→18:41)
[2022-02-16] MEDS: guaiFENesin/Codeine 200 mg/20 mg 10 ml Cup PO PRN ×2 (16:09→20:01)
[2022-02-16] MEDS: Latanoprost 0.005% Ophth Soln 2.5 ml Bottle EA EYE SCH (21:08)
[2022-02-16] MEDS: Rosuvastatin 20 MG TAB PO SCH (21:08)
[2022-02-17] MEDS: Cefepime 2 GM in Sodium Chloride 0.9% 100 ML IVPB SCH ×2 (00:44→14:20)
[2022-02-17] MEDS: guaiFENesin/Codeine 200 mg/20 mg 10 ml Cup PO PRN ×4 (00:44→18:37)
[2022-02-17 04:59] LABS: Hemoglobin 8.6 g/dL (12.0-16.0); Mean Corpuscular HGB CONC 33.3 g/dL (32.0-36.0); Mean Corpuscular Hemoglobin 36.1 pg (27.0-31.0); Mean Platelet Volume 8.3 fL (7.4-10.4); Platelet Count 97 10x3/uL (130-400); RBC Distribution Width 14.2 % (11.5-14.5); Red Blood Cell (RBC) Count 2.38 mill/uL (4.20-5.40); White Blood Cell (WBC) Count 6.2 10x3/uL (4.8-10.8)
[2022-02-17] MEDS: Ibuprofen 200 MG TAB PO PRN (05:17)
[2022-02-17] MEDS: Mometasone/Formoterol 200/5 60 PUFF INH SCH ×2 (05:18→19:09)
[2022-02-17] MEDS: Azithromycin 500 MG in Sodium Chloride 0.9% 250 ML 250 ML IVPB SCH (05:20)
[2022-02-17 05:21] LABS: ALT (SGPT) 24 U/L (8-55); AST (SGOT) 34 U/L (5-34); Albumin 2.8 g/dL (3.4-4.8); Alkaline Phosphatase 310 U/L (40-110); Anion Gap 12 mmol/L (10-20); BUN (Urea Nitrogen) 6 mg/dL (9.8-20.1); Bilirubin, Total 0.6 mg/dL (0.2-1.2); Calc. Creatinine Clearance 93 mL/min (70-130); Calcium 8.1 mg/dL (7.8-10.44); Carbon Dioxide 28 mmol/L (23-31); Chloride 100 mmol/L (98-107); Estimated GFR 104; Globulin 2.4 g/dL (2.4-3.5); Glucose 91 mg/dL (80-115); Magnesium 1.6 mg/dL (1.6-2.6); Potassium 3.7 mmol/L (3.5-5.1); Protein, Total 5.2 g/dL (5.8-8.1); Sodium 136 mmol/L (136-145)
[2022-02-17 05:29] LABS: Phosphorus 1.7 mg/dL (2.3-4.7)
[2022-02-17 05:53] LABS: Band 7 % (5-11); Lymphocytes 17 % (21-51); MDiff Complete? YES; Macrocytosis MODERATE=16-30 cells (100X) (0-5/hpf); Neutrophil 76 % (42-75); Nucleated RBC 1 % (0); Ovalocytes SLIGHT = 2-5 cells (100X) (0-1/hpf); Platelet Morphology Comment Appears Decreased
[2022-02-17] MEDS ORDERED: Magnesium 2 GM/50 ML(in water) 2 GM in Premix Bag 1 BAG IVPB SCH (08:00)
[2022-02-17] MEDS: Morphine ER 15 MG TAB PO SCH ×2 (08:43→20:49)
[2022-02-17] MEDS: clonazePAM 1 MG TAB PO SCH (08:43)
[2022-02-17] MEDS: Senokot S 8.6-50 MG TAB PO SCH ×2 (08:43→20:50)
[2022-02-17] MEDS: Gabapentin 400 MG CAP PO SCH ×4 (08:44→20:49)
[2022-02-17] MEDS: Trospium 20 MG TAB PO SCH ×2 (08:44→20:48)
[2022-02-17] MEDS: guaiFENesin ER 600 MG TAB PO SCH ×2 (08:44→20:49)
[2022-02-17] MEDS: DULoxetine 60 MG CAP PO SCH (08:44)
[2022-02-17] MEDS: PHOS-NAK 1 PKT PACK PO SCH ×5 (08:44→18:27)
[2022-02-17] MEDS ORDERED: Lidocaine 5% Patch TD SCH (10:00)
[2022-02-17] MEDS: Hydroxychloroquine Sulfate 200 MG TAB PO SCH (10:10)
[2022-02-17] MEDS: Lidocaine 5% Patch TD SCH (10:12)
[2022-02-17] MEDS: methylPREDNISolone Sod Succ 40 MG VIAL IVP SCH ×2 (14:20→18:26)
[2022-02-17] MEDS: Zolpidem Tartrate 5 MG TAB PO PRN (18:37)
[2022-02-17] MEDS: Rosuvastatin 20 MG TAB PO SCH (20:48)
[2022-02-17] MEDS: Latanoprost 0.005% Ophth Soln 2.5 ml Bottle EA EYE SCH (20:49)
[2022-02-17] MEDS: Benzonatate 100 MG CAP PO PRN (20:49)
[2022-02-17] MEDS: Transdermal Patch Removal TOP SCH (20:51)
[2022-02-18] MEDS: guaiFENesin/Codeine 200 mg/20 mg 10 ml Cup PO PRN ×5 (00:13→17:24)
[2022-02-18] MEDS: methylPREDNISolone Sod Succ 40 MG VIAL IVP SCH ×4 (00:14→17:24)
[2022-02-18] MEDS: Cefepime 2 GM in Sodium Chloride 0.9% 100 ML IVPB SCH ×2 (00:37→12:03)
[2022-02-18] MEDS ORDERED: HYDROcodone/Acetaminophen 5/325 mg Tablet PO PRN (01:17)
[2022-02-18 04:20] LABS: Critical Call w/ Read Back 2NO.CAB; Hemoglobin 9.1 g/dL (12.0-16.0); Mean Corpuscular HGB CONC 34.2 g/dL (32.0-36.0); Mean Corpuscular Hemoglobin 37.1 pg (27.0-31.0); Mean Platelet Volume 8.9 fL (7.4-10.4); Platelet Count 57 10x3/uL (130-400); RBC Distribution Width 13.9 % (11.5-14.5); Red Blood Cell (RBC) Count 2.46 mill/uL (4.20-5.40)
[2022-02-18 04:57] LABS: Anion Gap 14 mmol/L (10-20); BUN (Urea Nitrogen) 9 mg/dL (9.8-20.1); Calc. Creatinine Clearance 82 mL/min (70-130); Calcium 8.5 mg/dL (7.8-10.44); Carbon Dioxide 28 mmol/L (23-31); Chloride 98 mmol/L (98-107); Estimated GFR 101; Glucose 160 mg/dL (80-115); Magnesium 1.2 mg/dL (1.6-2.6); Phosphorus 2.6 mg/dL (2.3-4.7); Potassium 3.8 mmol/L (3.5-5.1); Sodium 136 mmol/L (136-145)
[2022-02-18] MEDS: Azithromycin 500 MG in Sodium Chloride 0.9% 250 ML 250 ML IVPB SCH (05:43)
[2022-02-18 06:05] LABS: Hemoglobin 7.5 g/dL (12.0-16.0); Mean Corpuscular HGB CONC 33.3 g/dL (32.0-36.0); Mean Corpuscular Hemoglobin 36.1 pg (27.0-31.0); Mean Platelet Volume 8.9 fL (7.4-10.4); Platelet Count 51 10x3/uL (130-400); RBC Distribution Width 13.5 % (11.5-14.5); Red Blood Cell (RBC) Count 2.07 mill/uL (4.20-5.40); White Blood Cell (WBC) Count 0.8 10x3/uL (4.8-10.8)
[2022-02-18 06:29] LABS: Band 28 % (5-11); Hypochromia SLIGHT = 6-15 cells (100X) (0-5/hpf); Lymphocytes 12 % (21-51); MDiff Complete? YES; Macrocytosis SLIGHT = 6-15 cells (100X) (0-5/hpf); Monocytes 12 % (0-10); Neutrophil 48 % (42-75); Platelet Morphology Comment Appears Decreased
[2022-02-18] MEDS: Mometasone/Formoterol 200/5 60 PUFF INH SCH ×2 (07:04→18:33)
[2022-02-18] MEDS ORDERED: Magnesium Sulfate In Water 4 GM in Premix Bag 1 BAG IVPB SCH (08:00)
[2022-02-18] MEDS: Hydroxychloroquine Sulfate 200 MG TAB PO SCH (09:19)
[2022-02-18] MEDS: Morphine ER 15 MG TAB PO SCH ×2 (09:20→21:02)
[2022-02-18] MEDS: DULoxetine 60 MG CAP PO SCH (09:20)
[2022-02-18] MEDS: Trospium 20 MG TAB PO SCH ×2 (09:20→21:05)
[2022-02-18] MEDS: Aspirin 81 mg Enteric Coated Tablet PO SCH (09:20)
[2022-02-18] MEDS: clonazePAM 1 MG TAB PO SCH (09:21)
[2022-02-18] MEDS: Gabapentin 400 MG CAP PO SCH ×4 (09:21→21:01)
[2022-02-18] MEDS: guaiFENesin ER 600 MG TAB PO SCH ×2 (09:22→21:02)
[2022-02-18] MEDS: Polyethylene Glycol 3350 17 GM Packet PO SCH (09:22)
[2022-02-18] MEDS: Lidocaine 5% Patch TD SCH (09:22)
[2022-02-18] MEDS: Senokot S 8.6-50 MG TAB PO SCH ×2 (09:22→21:04)
[2022-02-18] MEDS: Benzonatate 100 MG CAP PO PRN (09:29)
[2022-02-18] MEDS ORDERED: Iopamidol 370 76% 100 ML VIAL ONE (12:52)
[2022-02-18] MEDS ORDERED: Furosemide 20 MG/2 ML VIAL SLOW IVP SCH (16:45)
[2022-02-18] MEDS: Zolpidem Tartrate 5 MG TAB PO PRN (21:02)
[2022-02-18] MEDS: Rosuvastatin 20 MG TAB PO SCH (21:02)
[2022-02-18] MEDS: Latanoprost 0.005% Ophth Soln 2.5 ml Bottle EA EYE SCH (21:05)
[2022-02-19] MEDS: guaiFENesin/Codeine 200 mg/20 mg 10 ml Cup PO PRN ×3 (00:14→15:20)
[2022-02-19] MEDS: Cefepime 2 GM in Sodium Chloride 0.9% 100 ML IVPB SCH ×2 (00:15→12:18)
[2022-02-19] MEDS: methylPREDNISolone Sod Succ 40 MG VIAL IVP SCH ×2 (00:15→06:27)
[2022-02-19] MEDS: Transdermal Patch Removal TOP SCH ×2 (00:16→22:30)
[2022-02-19] MEDS: Benzonatate 100 MG CAP PO PRN ×3 (04:25→22:00)
[2022-02-19 05:21] LABS: ALT (SGPT) 22 U/L (8-55); AST (SGOT) 21 U/L (5-34); Alkaline Phosphatase 292 U/L (40-110); Anion Gap 11 mmol/L (10-20); BUN (Urea Nitrogen) 7 mg/dL (9.8-20.1); Bilirubin, Total 0.3 mg/dL (0.2-1.2); Calc. Creatinine Clearance 71 mL/min (70-130); Calcium 8.2 mg/dL (7.8-10.44); Carbon Dioxide 30 mmol/L (23-31); Chloride 98 mmol/L (98-107); Estimated GFR 98; Globulin 2.6 g/dL (2.4-3.5); Glucose 236 mg/dL (80-115); Potassium 3.4 mmol/L (3.5-5.1); Protein, Total 5.6 g/dL (5.8-8.1); Sodium 136 mmol/L (136-145)
[2022-02-19 06:02] LABS: Band 12 % (5-11); Hemoglobin 7.9 g/dL (12.0-16.0); Lymphocytes 42 % (21-51); MDiff Complete? YES; Macrocytosis MODERATE=16-30 cells (100X) (0-5/hpf); Mean Corpuscular HGB CONC 34.5 g/dL (32.0-36.0); Mean Corpuscular Hemoglobin 37.6 pg (27.0-31.0); Mean Platelet Volume 9.6 fL (7.4-10.4); Monocytes 12 % (0-10); Neutrophil 34 % (42-75); Ovalocytes SLIGHT = 2-5 cells (100X) (0-1/hpf); Platelet Count 25 10x3/uL (130-400); Platelet Morphology Comment Appears Decreased; RBC Distribution Width 13.6 % (11.5-14.5); White Blood Cell (WBC) Count 0.7 10x3/uL (4.8-10.8)
[2022-02-19] MEDS: Azithromycin 500 MG in Sodium Chloride 0.9% 250 ML 250 ML IVPB SCH (06:27)
[2022-02-19] MEDS: Mometasone/Formoterol 200/5 60 PUFF INH SCH ×2 (07:40→19:20)
[2022-02-19] MEDS ORDERED: Potassium Chloride 20 MEQ TAB PO SCH (08:00)
[2022-02-19] MEDS: Hydroxychloroquine Sulfate 200 MG TAB PO SCH (09:46)
[2022-02-19] MEDS: Aspirin 81 mg Enteric Coated Tablet PO SCH (09:46)
[2022-02-19] MEDS: guaiFENesin ER 600 MG TAB PO SCH ×2 (09:47→22:02)
[2022-02-19] MEDS: Trospium 20 MG TAB PO SCH ×2 (09:47→21:59)
[2022-02-19] MEDS: Gabapentin 400 MG CAP PO SCH ×5 (09:47→22:02)
[2022-02-19] MEDS: clonazePAM 1 MG TAB PO SCH (09:49)
[2022-02-19] MEDS: Morphine ER 15 MG TAB PO SCH (09:49)
[2022-02-19] MEDS: DULoxetine 60 MG CAP PO SCH (09:49)
[2022-02-19] MEDS: Polyethylene Glycol 3350 17 GM Packet PO SCH (09:50)
[2022-02-19] MEDS: Senokot S 8.6-50 MG TAB PO SCH ×2 (09:50→22:30)
[2022-02-19] MEDS: Lidocaine 5% Patch TD SCH (09:50)
[2022-02-19] MEDS ORDERED: Naloxone HCl 0.4 mg/ml Vial IV PRN (13:57)
[2022-02-19] MEDS ORDERED: HYDROcodone/Acetaminophen 5/325 mg Tablet PO PRN (13:57)
[2022-02-19] MEDS: Morphine IR Tab 15 MG TAB PO PRN ×2 (15:23→19:08)
[2022-02-19] MEDS: Zolpidem Tartrate 5 MG TAB PO PRN (21:58)
[2022-02-19] MEDS: Latanoprost 0.005% Ophth Soln 2.5 ml Bottle EA EYE SCH (21:59)
[2022-02-19] MEDS: Rosuvastatin 20 MG TAB PO SCH (22:01)
[2022-02-20] MEDS: Cefepime 2 GM in Sodium Chloride 0.9% 100 ML IVPB SCH ×2 (00:14→12:00)
[2022-02-20] MEDS: guaiFENesin/Codeine 200 mg/20 mg 10 ml Cup PO PRN ×2 (03:33→13:56)
[2022-02-20 05:20] LABS: ALT (SGPT) 35 U/L (8-55); AST (SGOT) 33 U/L (5-34); Alkaline Phosphatase 281 U/L (40-110); Anion Gap 9 mmol/L (10-20); BUN (Urea Nitrogen) 4 mg/dL (9.8-20.1); Bilirubin, Total 0.5 mg/dL (0.2-1.2); Calc. Creatinine Clearance 85 mL/min (70-130); Calcium 8.3 mg/dL (7.8-10.44); Carbon Dioxide 30 mmol/L (23-31); Chloride 101 mmol/L (98-107); Estimated GFR 102; Globulin 2.4 g/dL (2.4-3.5); Glucose 87 mg/dL (80-115); Magnesium 1.2 mg/dL (1.6-2.6); Potassium 3.9 mmol/L (3.5-5.1); Protein, Total 5.4 g/dL (5.8-8.1); Sodium 136 mmol/L (136-145)
[2022-02-20] MEDS: Azithromycin 500 MG in Sodium Chloride 0.9% 250 ML 250 ML IVPB SCH (05:24)
[2022-02-20] MEDS: Morphine IR Tab 15 MG TAB PO PRN ×3 (05:36→14:33)
[2022-02-20 06:02] LABS: Band 8 % (5-11); Hypochromia SLIGHT = 6-15 cells (100X) (0-5/hpf); Lymphocytes 76 % (21-51); MDiff Complete? YES; Macrocytosis SLIGHT = 6-15 cells (100X) (0-5/hpf); Mean Corpuscular HGB CONC 33.3 g/dL (32.0-36.0); Mean Corpuscular Hemoglobin 36.2 pg (27.0-31.0); Mean Platelet Volume 10.6 fL (7.4-10.4); Monocytes 4 % (0-10); Neutrophil 12 % (42-75); Platelet Count 12 10x3/uL (130-400); RBC Distribution Width 13.3 % (11.5-14.5); White Blood Cell (WBC) Count 1.8 10x3/uL (4.8-10.8)
[2022-02-20] MEDS: PHOS-NAK 1 PKT PACK PO SCH ×4 (06:22→17:26)
[2022-02-20] MEDS: Mometasone/Formoterol 200/5 60 PUFF INH SCH (07:23)
[2022-02-20] MEDS ORDERED: Magnesium Sulfate 4 GM in Sodium Chloride 0.9% 250 ML 250 ML IVPB SCH (08:00)
[2022-02-20 08:29] VITALS: BP 117/78; TEMP 98.6
[2022-02-20] MEDS ORDERED: predniSONE 20 MG TAB PO SCH (09:00)
[2022-02-20] MEDS: Senokot S 8.6-50 MG TAB PO SCH (10:15)
[2022-02-20] MEDS: clonazePAM 1 MG TAB PO SCH (10:15)
[2022-02-20] MEDS: Polyethylene Glycol 3350 17 GM Packet PO SCH (10:15)
[2022-02-20] MEDS: DULoxetine 60 MG CAP PO SCH (10:16)
[2022-02-20] MEDS: Gabapentin 400 MG CAP PO SCH ×2 (10:16→14:31)
[2022-02-20] MEDS: Aspirin 81 mg Enteric Coated Tablet PO SCH (10:17)
[2022-02-20] MEDS: Hydroxychloroquine Sulfate 200 MG TAB PO SCH (10:17)
[2022-02-20] MEDS: guaiFENesin ER 600 MG TAB PO SCH (10:17)
[2022-02-20] MEDS: Trospium 20 MG TAB PO SCH (10:18)
[2022-02-20] MEDS: Lidocaine 5% Patch TD SCH (10:18)
[2022-02-20] MEDS ORDERED: Cefpodoxime 200 MG TAB PO SCH ×2 (14:15→21:00)
[2022-02-21] MEDS ORDERED: Azithromycin 250 MG TAB PO SCH (09:00)
== END 2022-02-20 18:15 | disposition home or self-care (01) | DRG 871 ==
LOC: ERS 23:50 → 2NO 02-14 01:15 → MSONC 02-19 17:40
PROVIDERS: ADMIT Student in an Organized Health Care Education/Training Program; ATTEND Hospitalist
PROC: 0W993ZZ Drainage of Right Pleural Cavity, Percutaneous Approach (ICD-10-PCS; principal; 2022-02-14)
PROC: 3E03329 Introduction of Other Anti-infective into Peripheral Vein, Percutaneous Approach (ICD-10-PCS; 2022-02-14)
DX: A41.9 Sepsis, unspecified organism (principal); D61.810 Antineoplastic chemotherapy induced pancytopenia; J18.9 Pneumonia, unspecified organism; J96.01 Acute respiratory failure with hypoxia; I21.A1 Myocardial infarction type 2; J44.1 Chronic obstructive pulmonary disease with (acute) exacerbation; J44.0 Chronic obstructive pulmonary disease with (acute) lower respiratory infection; C34.90 Malignant neoplasm of unspecified part of unspecified bronchus or lung; E87.1 Hypo-osmolality and hyponatremia; J91.0 Malignant pleural effusion; Z51.5 Encounter for palliative care; Z66 Do not resuscitate; I25.10 Atherosclerotic heart disease of native coronary artery without angina pectoris; M81.0 Age-related osteoporosis without current pathological fracture; K70.30 Alcoholic cirrhosis of liver without ascites; I10 Essential (primary) hypertension; D64.9 Anemia, unspecified; E83.39 Other disorders of phosphorus metabolism; E87.6 Hypokalemia; E83.42 Hypomagnesemia; G89.4 Chronic pain syndrome; F41.9 Anxiety disorder, unspecified; F17.210 Nicotine dependence, cigarettes, uncomplicated; D69.6 Thrombocytopenia, unspecified; T45.1X5A Adverse effect of antineoplastic and immunosuppressive drugs, initial encounter; R07.89 Other chest pain; Z90.49 Acquired absence of other specified parts of digestive tract; Z90.710 Acquired absence of both cervix and uterus; Z79.899 Other long term (current) drug therapy; Z88.2 Allergy status to sulfonamides; Z98.1 Arthrodesis status; Z71.6 Tobacco abuse counseling
CPT/HCPCS: 36415; 36416; 71045; 71046; 71260; 74177; 80048; 80053; 81003; 81015; 82553; 82945; 83605; 83615; 83735; 83880; 84100; 84157; 84484; 85025; 85060; 87040; 87070; 87086; 87205; 87811; 89051; 93005; 96374; J0456; J0692; J1650; J1815; J1885; J1940; J2405; J2920; J3370-JW; J3475; J3490; J7030; J7050; J7512; J7620; Q9967